=== PATIENT | male | born 1965 | race Caucasian/White ===

== ENCOUNTER → 2017-06-21 | Outpatient (CLI) | payer OTHER | END | disposition home or self-care (01) | LOC: RADUSWWP 12:49 | PROVIDERS: ATTEND Family Medicine | DX: R53.1 Weakness (principal); R20.2 Paresthesia of skin | CPT/HCPCS: 93923 ==

== ENCOUNTER → 2018-05-16 | Outpatient (CLI) | payer OTHER ==
[2018-05-16 18:01] LABS: Blood Urea Nitrogen 15 mg/dL (9-20)
--- NOTE | 2018-05-17 10:07 | CT ---
EXAMINATION TYPE: CT ChestAbdPelvis w con DATE OF EXAM: 05/16/2018 COMPARISON: HISTORY: Head/neck cancer CT DLP: 1617.0 mGycm CONTRAST: CT scan of the chest, abdomen and pelvis is performed with Oral Contrast and with IV Contrast, patien t injected with 100 mL of Isovue 300. CT Chest: LUNGS: The lungs are clear and free of infiltrate or atelectasis. No pulmonary nodule or mass is det ected. No pleural effusion or CT evidence of interstitial lung disease. MEDIASTINUM: Thoracic aorta is of normal caliber. The heart is not enlarged. No evidence for media stinal mass or adenopathy. HILAR STRUCTURES: No evidence for mass. No hilar adenopathy is appreciated. OTHER: No significant abnormality. CONTRAST CT ABDOMEN AND PELVIS FINDINGS: LIVER/GB: No calcified gallstones. No space occupying hepatic lesion. Biliary tree is of normal ca liber. PANCREAS: No inflammation. No distinct mass. SPLEEN: No splenic enlargement. No lesion seen. ADRENALS: No nodule. No thickening. KIDNEYS/BLADDER: No hydronephrosis. No nephrolithiasis. No disctinct renal mass. BOWEL: Normal appendix. Normal bowel caliber. No inflammation. GENITAL ORGANS: No gross abnormality. LYMPH NODES: No greater than 1cm abdominal or pelvic lymph nodes are appreciated. AORTA: No significant abnormality. OSSEOUS STRUCTURES: Mild scattered degenerative changes seen. OTHER: No significant additional abnormality is seen. IMPRESSION: 1. No evidence for metastatic disease.
== END | disposition home or self-care (01) ==
LOC: RADCTMAIN 16:57
PROVIDERS: ATTEND Internal Medicine Hematology & Oncology
DX: C76.0 Malignant neoplasm of head, face and neck (principal)
CPT/HCPCS: 82565; 84520; 71260; 74177; 36415; Q9967

== ENCOUNTER 2019-05-15 12:02 | Inpatient (IN) | payer OTHER ==
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
--- NOTE | 2019-05-15 13:06 | CT ---
EXAMINATION TYPE: CT brain wesly gongora DATE OF EXAM: 05/15/2019 COMPARISON: NONE HISTORY: Neck pain and Stiffness post fall. Contusion injury right superior skull CT DLP: 1308.4 mGycm. Automated Exposure Control for Dose Reduction was Utilized. TECHNIQUE: CT scan of the head and cervical spine are performed without contrast. FINDINGS: There is no acute intracranial hemorrhage or midline shift identified. Mild ventricular a nd sulcal prominence is present. The calvarium is intact. The globes are intact and the visualized s inuses are clear. Cervical spine is visualized in its entirety from C1 through upper thoracic levels and demonstrates l evoconvex scoliotic curvature centered lower cervical spine without evidence of acute fracture or dis location. Prevertebral soft tissue appears within normal limits. The C1-C2 articulation is within n ormal limits on the coronal images. Vertebral body heights are maintained. Mild spurring C4-C5 level . Mild to moderate disc space narrowing and spurring C5-C6 level. Posterior spur disc complexes effac e the anterior thecal sac at the levels of sagittal and axial images. Visualized lung apices are mars r. Somewhat small right-sided thyroid lobe incidentally noted. IMPRESSION: 1. There is no acute fracture or dislocation evident in the cervical spine. 2. No acute intracranial hemorrhage or midline shift is seen.
[2019-05-15] MEDS ORDERED: HYDROcodone/APAP 5-325MG 1 EACH TAB PO STA (13:16)
[2019-05-15] MEDS ORDERED: DIPH,PERTUS(ACELL)TETVAC-LF 0.5 ML VIAL IM ONE (13:16)
--- NOTE | 2019-05-15 14:00 | XR ---
EXAMINATION TYPE: XR shoulder complete RT DATE OF EXAM: 05/15/2019 COMPARISON: NONE HISTORY: 53-year-old male with pain after fall TECHNIQUE: 3 views FINDINGS: There is an oblique, mildly angulated and mildly displaced fracture of the distal right clavicle. Mod erate degenerative change at the AC joint. Additional fracture lucency seen extending from the latera l scapular border just below the glenoid into the scapular body without significant displacement. Deg enerative spurring at the glenohumeral joint. IMPRESSION: 1. Oblique, mildly displaced fracture of the distal right clavicular shaft. 2. Additional nondisplaced fracture of the scapular body exiting the lateral scapular margin just bel ow the glenoid. 3. 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
--- NOTE | 2019-05-15 14:04 | XR ---
EXAMINATION TYPE: XR knee complete 3 views RT, XR ankle complete 3 views RT DATE OF EXAM: 05/15/2019 COMPARISON: NONE HISTORY: 53-year-old male pain after fall today FINDINGS: Right knee: Mild degenerative spurring in the medial and lateral compartments. Some anterior soft tissue swelling is noted. No sizable joint effusion. No lipohemarthrosis. No acute fracture, subluxation, or disloca tion is seen. Right ankle: Soft tissue swelling about the ankle especially laterally. Subtle linear lucency along the inferior t ip of the lateral malleolus. Additional subtle lucency along the inferior tip of the medial malleolus . Ankle mortise remains congruent. Preservation of the distal tibiofibular overlap. Talar dome is int act. Achilles tendon remains delineated. IMPRESSION: 1. Right knee: Some anterior soft tissue swelling. No sizable joint effusion or underlying acute osse ous abnormality seen and 2. Right ankle: Soft tissue swelling with subtle linear lucencies along the inferior tips of both med ial and lateral malleoli. Subtle nondisplaced malleolar fractures not excluded.
--- NOTE | 2019-05-15 14:05 | XR ---
EXAMINATION TYPE: XR ribs RT w pa chest xray DATE OF EXAM: 05/15/2019 CLINICAL HISTORY: Falling injury with chest and right-sided rib pain. TECHNIQUE: Single frontal view of the chest is obtained. A frontal and oblique images the right-sided ribs are acquired. COMPARISON: None FINDINGS: Somewhat low lung volumes are present. There is medial right basilar linear atelectasis. L eft lung is clear. No pleural effusion or pneumothorax. The cardiac silhouette size is within normal limits. The osseous structures are intact. Dedicated images of right-sided ribs show acute minimally displaced fracture involving anterolateral right seventh rib. Overlying soft tissue is unremarkable. IMPRESSION: 1. Patchy medial right basilar linear atelectasis. 2. Acute minimally displaced fracture anterolateral right seventh rib.
[2019-05-15 14:40] LABS: Basophils % (A) 0 %; Eosinophils % (A) 0 %; HCT 39.8 % (39.0-53.0); HGB 13.2 gm/dL (13.0-17.5); Lymphocytes # (A) 1.1 k/uL (1.0-4.8); Lymphocytes % (A) 13 %; MCH 28.2 pg (25.0-35.0); MCHC 33.2 g/dL (31.0-37.0); MCV 84.8 fL (80.0-100.0); Mean Platelet Volume 7.9; Monocytes # (A) 0.7 k/uL (0-1.0); Monocytes % (A) 8 %; Neutrophils # (A) 6.9 k/uL (1.3-7.7); Neutrophils % (A) 77 %; Platelet Count 171 k/uL (150-450); RBC 4.69 m/uL (4.30-5.90); RDW 13.7 % (11.5-15.5)
[2019-05-15 14:48] LABS: ALT 47 U/L (21-72); AST 33 U/L (17-59); African American GFR (CKD) >90 (>60 ml/min/1.73 sqM); Albumin 4.5 g/dL (3.5-5.0); Alkaline Phosphatase 102 U/L (38-126); Anion Gap 14 mmol/L; Blood Urea Nitrogen 26 mg/dL (9-20); Calcium 9.8 mg/dL (8.4-10.2); Carbon Dioxide 23 mmol/L (22-30); Chloride 99 mmol/L (98-107); Glucose 429 mg/dL (74-99); Potassium 4.4 mmol/L (3.5-5.1); Sodium 136 mmol/L (137-145); Total Protein 7.3 g/dL (6.3-8.2)
[2019-05-15] MEDS ORDERED: MORPHINE SULFATE 2 MG/ML SYRINGE IVP STA (15:06)
[2019-05-15 15:13] LABS: Appearance,Urine Clear (Clear); Bilirubin,Urine Negative (Negative); Blood,Urine Negative (Negative); Color,Urine Light Yellow; Glucose,Urine (UA) 4+ (Negative); Ketones,Urine 1+ (Negative); Leukocyte Esterase,Urine Negative (Negative); Nitrite,Urine Negative (Negative); Protein,Urine Negative (Negative); Urobilinogen,Urine <2.0 mg/dL (<2.0)
--- NOTE | 2019-05-15 15:51 | CT ---
EXAMINATION TYPE: CT ChestAbdPelvis w con DATE OF EXAM: 05/15/2019 COMPARISON: 05/16/2018 HISTORY: 53-year-old male with abnormal shoulder and rib xrays TECHNIQUE: Contiguous axial scanning of the chest, abdomen, and pelvis performed with IV Contrast, pa tient injected with 100 mL of Isovue 300. Delayed images through the kidneys were obtained. Coronal/s agittal reconstructions performed. CT DLP: 1383.8 mGycm Automated exposure control for dose reduction was used. FINDINGS: CHEST: Normal size without pericardial effusion. Coronary vessel calcifications are present. Aortic root mildly aneurysmal at 4.0 cm. No evidence for aortic dissection. Conventional vessel branc saran anatomy. No mediastinal hematoma or thoracic lymphadenopathy. Some minimal patchy groundglass in the right mid and lower lung could represent atelectasis or minima l pulmonary contusions. No pleural effusion or pneumothorax. ABDOMEN: Artifact from the patient's right arm being down causes some limitation. No definite focal liver lesi on or biliary ductal dilatation. Portal venous system is patent. Gallbladder, adrenal glands, kidneys, spleen appear within normal limits. Generalized fatty atrophy of the pancreas with some sparing of the pancreatic tail, unchanged from pr ior. There is some nodularity at the level of the pancreatic body measuring 9 mm and 8 mm this appears mor e pronounced from prior and could represent underlying cysts, residual pancreatic parenchyma, or othe r small lesions. Follow-up recommended. No dilated small bowel, free fluid, or free air. No mesenteric or retroperitoneal lymphadenopathy. Moderate stool burden. No pericolonic inflammatory change. PELVIS: Bladder urine distended. Prostate gland mildly prominent 0.8 cm wide. Pelvic phleboliths. Suggestion of some bruising along the right lateral hip. No abnormal fluid collection the pelvis or pelvic lymph adenopathy. BONES: Mild comminuted fracture of the distal right clavicle. Nondisplaced fracture of the right scapular body extending just below the glenoid and coursing just b elow the spine of the scapula. This is better seen radiographically. Mild superior endplate deformity L1 is chronic and unchanged from 05/16/2018. Subtle nondisplaced fractures of the right lateral fourth and sixth ribs. Degenerative changes at the hips. Facet arthropathy lumbar spine. IMPRESSION: 1. MILDLY COMMINUTED FRACTURE DISTAL RIGHT CLAVICLE. 2. NONDISPLACED HORIZONTAL FRACTURE OF THE SCAPULAR BODY EXTENDING FROM BELOW THE GLENOID AND COURSIN G JUST BELOW THE SCAPULAR SPINE AND ALIGNMENT IS BETTER SEEN RADIOGRAPHICALLY. 3. NONDISPLACED FRACTURES OF THE RIGHT LATERAL FOURTH AND SIXTH RIBS. 4. SOME MILD PATCHY DENSITIES IN THE RIGHT LUNG COULD REPRESENT AREAS OF ATELECTASIS OR MINIMAL PULMO NARY CONTUSIONS. NO PLEURAL EFFUSION OR PNEUMOTHORAX. 5. SOME SUBCUTANEOUS SOFT TISSUE BRUISING ALONG THE RIGHT LATERAL HIP. 6. SOME NODULARITY MEASURING 9 MM AND 8 MM WITHIN THE PANCREATIC BODY APPEARS MORE PRONOUNCED FROM . [address] FOLLOW-UP CT RECOMMENDED TO REASSESS.
[2019-05-15] MEDS ORDERED: ONDANSETRON 4 MG/2 ML VIAL IVP PRN (16:28)
[2019-05-15] MEDS ORDERED: SODIUM CHLORIDE 0.9% 1,000 ML IV SCH (16:30)
[2019-05-15] MEDS ORDERED: HEPARIN SODIUM,PORCINE 5,000 UNIT/ML 1 ML VIAL IV ONE (17:03)
[2019-05-15] MEDS ORDERED: HEPARIN SOD,PORK IN 0.45% NACL 25,000 UNIT in 0.45% NACL 1 250ML.BAG IV SCH (17:15)
[2019-05-15 21:06] LABS: Glucose,Whole Blood 291 mg/dL (75-99)
[2019-05-16] MEDS ORDERED: HEPARIN SODIUM,PORCINE 5,000 UNIT/ML 1 ML VIAL IV PRN (01:11)
[2019-05-16] MEDS: MORPHINE SULFATE 4 MG/ML SYRINGE IV PRN ×2 (02:40→07:16)
[2019-05-16 07:11] LABS: Glucose,Whole Blood 287 mg/dL (75-99)
[2019-05-16] MEDS ORDERED: HYDROcodone/APAP 5-325MG 1 EACH TAB PO PRN (08:09)
[2019-05-16] MEDS: ATORVASTATIN 80 MG TAB PO SCH (08:45)
[2019-05-16] MEDS: ENOXAPARIN 40 MG/0.4 ML SYRINGE SQ SCH (08:45)
[2019-05-16] MEDS: INSULIN ASPART (NovoLOG) 100 UNIT/ML VIAL SQ SCH ×4 (08:45→21:07)
[2019-05-16] MEDS: metFORMIN 500 MG TAB PO SCH ×2 (08:46→17:42)
[2019-05-16] MEDS: SODIUM CHLORIDE 0.9% 1,000 ML IV SCH ×2 (08:46→17:43)
[2019-05-16 11:17] LABS: Glucose,Whole Blood 294 mg/dL (75-99)
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
[2019-05-16] MEDS ORDERED: IBUPROFEN 600 MG TAB PO PRN (13:27)
[2019-05-16] MEDS ORDERED: CYCLOBENZAPRINE 5 MG TAB PO PRN (13:27)
[2019-05-16] MEDS: HYDROcodone/APAP 7.5-325MG 1 EACH TAB PO PRN (16:08)
[2019-05-16 16:46] LABS: Glucose,Whole Blood 273 mg/dL (75-99)
[2019-05-16 19:45] LABS: Glucose,Whole Blood 229 mg/dL (75-99)
[2019-05-16 20:57] LABS: Hemoglobin A1C 14.6 % (4.0-6.0)
[2019-05-17] MEDS: HYDROcodone/APAP 7.5-325MG 1 EACH TAB PO PRN ×3 (02:15→12:44)
[2019-05-17] MEDS: SODIUM CHLORIDE 0.9% 1,000 ML IV SCH ×2 (05:40→16:06)
[2019-05-17 06:55] LABS: Glucose,Whole Blood 245 mg/dL (75-99)
[2019-05-17] MEDS: INSULIN ASPART (NovoLOG) 100 UNIT/ML VIAL SQ SCH ×2 (07:45→12:40)
[2019-05-17] MEDS: ENOXAPARIN 40 MG/0.4 ML SYRINGE SQ SCH (07:45)
[2019-05-17] MEDS: metFORMIN 500 MG TAB PO SCH (07:45)
[2019-05-17] MEDS: ATORVASTATIN 80 MG TAB PO SCH (07:45)
[2019-05-17 08:15] LABS: Basophils % (A) 0 %; Eosinophils # (A) 0.1 k/uL (0-0.7); Eosinophils % (A) 2 %; HCT 32.9 % (39.0-53.0); HGB 11.2 gm/dL (13.0-17.5); Lymphocytes # (A) 1.3 k/uL (1.0-4.8); Lymphocytes % (A) 17 %; MCHC 33.9 g/dL (31.0-37.0); MCV 85.4 fL (80.0-100.0); Mean Platelet Volume 7.4; Monocytes # (A) 0.6 k/uL (0-1.0); Monocytes % (A) 8 %; Neutrophils # (A) 5.5 k/uL (1.3-7.7); Neutrophils % (A) 71 %; Platelet Count 149 k/uL (150-450); RBC 3.85 m/uL (4.30-5.90); RDW 13.7 % (11.5-15.5); WBC 7.7 k/uL (3.8-10.6)
[2019-05-17 08:26] LABS: African American GFR (CKD) >90 (>60 ml/min/1.73 sqM); Anion Gap 8 mmol/L; Blood Urea Nitrogen 20 mg/dL (9-20); Calcium 8.5 mg/dL (8.4-10.2); Carbon Dioxide 25 mmol/L (22-30); Chloride 102 mmol/L (98-107); Glucose 230 mg/dL (74-99); Sodium 135 mmol/L (137-145)
[2019-05-17] MEDS ORDERED: PANTOPRAZOLE 40 MG/10 ML VIAL IVP SCH (09:00)
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
[2019-05-17 11:27] VITALS: BMI 26.0
[2019-05-17 11:33] LABS: Glucose,Whole Blood 261 mg/dL (75-99)
[2019-05-17 12:04] VITALS: BP 104/65; PULSE 80; RESP 17; TEMP 97.1
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
== END 2019-05-17 17:05 | disposition home or self-care (01) | DRG 565 ==
LOC: EC 12:02 → 3NMEDONC 17:02 → OBSVTOIN 05-16 07:28
PROVIDERS: ADMIT Surgery; ATTEND Surgery
PROC: 3E0234Z Introduction of Serum, Toxoid and Vaccine into Muscle, Percutaneous Approach (ICD-10-PCS; principal; 2019-05-15)
DX: S42.114A Nondisplaced fracture of body of scapula, right shoulder, initial encounter for closed fracture (principal); S27.321A Contusion of lung, unilateral, initial encounter; S22.41XA Multiple fractures of ribs, right side, initial encounter for closed fracture; J98.11 Atelectasis; S42.021A Displaced fracture of shaft of right clavicle, initial encounter for closed fracture; E11.40 Type 2 diabetes mellitus with diabetic neuropathy, unspecified; E11.65 Type 2 diabetes mellitus with hyperglycemia; Z23 Encounter for immunization; S82.844A Nondisplaced bimalleolar fracture of right lower leg, initial encounter for closed fracture; S70.01XA Contusion of right hip, initial encounter; S80.01XA Contusion of right knee, initial encounter; S00.01XA Abrasion of scalp, initial encounter; S40.811A Abrasion of right upper arm, initial encounter; E78.5 Hyperlipidemia, unspecified; Z79.84 Long term (current) use of oral hypoglycemic drugs; Z79.899 Other long term (current) drug therapy; Z98.890 Other specified postprocedural states; Z87.891 Personal history of nicotine dependence; Z85.818 Personal history of malignant neoplasm of other sites of lip, oral cavity, and pharynx; Z83.3 Family history of diabetes mellitus; Z82.49 Family history of ischemic heart disease and other diseases of the circulatory system; V28.4XXA Motorcycle driver injured in noncollision transport accident in traffic accident, initial encounter; Y92.410 Unspecified street and highway as the place of occurrence of the external cause
CPT/HCPCS: 29515; 36415; 70450; 71045; 71260; 72125; 74177; 80048; 80053; 81003; 82009; 83036; 85025; 85730; 90471; 90715; 96365; 96375; 96376; 99285

== ENCOUNTER → 2022-06-10 | Outpatient (CLI) | payer OTHER ==
--- NOTE | 2022-06-10 12:01 | US ---
EXAMINATION TYPE: US carotid duplex BILAT DATE OF EXAM: 06/10/2022 COMPARISON: NONE CLINICAL HISTORY: R42 Dizziness Giddiness. Patient states he has been falling over lately. No HTN per patient. TECHNIQUE: Carotid duplex ultrasound examination. Indirect Doppler criteria was utilized. FINDINGS: EXAM MEASUREMENTS: RIGHT: Peak Systolic Velocity (PSV) cm/sec ----- Right CCA: 56.4 ----- Right ICA: 123.7 ----- Right ECA: 158.9 ICA/CCA ratio: 2.2 RIGHT: End Diastole cm/sec ----- Right CCA: 16.2 ----- Right ICA: 36.5 ----- Right ECA: 13.0 LEFT: Peak Systolic Velocity (PSV) cm/sec ----- Left CCA: 111.9 ----- Left ICA: 115.7 ----- Left ECA: 130.2 ICA/CCA ratio: 1.0 LEFT: End Diastole cm/sec ----- Left CCA: 35.2 ----- Left ICA: 52.7 ----- Left ECA: 10.7 VERTEBRALS (direction of flow): Right Vertebral: Antegrade Left Vertebral: Antegrade Rhythm: Normal MULTIFOCAL LENS INSPECTOR NOTES: Bilateral wall thickening. Plaque bilateral bulbs. Elevated ECA velocities. Grayscale images show moderate to severe peripheral plaque right carotid bulb and severe hypoechoic p laque left carotid bulb. Increased peak systolic velocity left common carotid artery. Increased end d iastolic velocity left internal carotid artery. Abnormal ratio on the right. IMPRESSION: Fairly severe atherosclerotic changes bilaterally. Cannot exclude significant stenosis gr eater than 50%. Further investigation with CTA or MRA of the neck is advised. Criteria for Assigning % of Stenosis / Diameter reduction (Estimation based on the indirect measurements of the internal carotid artery velocities (ICA PSV). 1. Normal (no stenosis)=ICA PSV < 125 cm/s: ratio < 2.0: ICA EDV<40 cm/s. 2. Less than 50% stenosis=ICA PSV < 125 cm/s: ratio < 2.0: ICA EDV<40 cm/s. 3. 50 to 69% stenosis=ICA PSV of 125 to 230 cm/s: ration 2.0 ? 4.0: ICA EDV 40-100 cm/s. 4. Greater than 70% stenosis to near occlusion= ICA PSV > 230 cm/s: ratio > 4.0: ICA EDV > 100 cm/s. 5. Near occlusion= ICA PSV velocities may be low or undetectable: variable ratio and ICA EDV. 6. Total occlusion=unable to detect flow.
== END | disposition home or self-care (01) ==
LOC: RADUSWWP 11:21
DX: I65.23 Occlusion and stenosis of bilateral carotid arteries (principal)
CPT/HCPCS: 93880

== ENCOUNTER → 2022-10-22 | Outpatient (CLI) | payer OTHER ==
[2022-10-22 10:53] LABS: African American GFR (CKD) >90 (>60 ml/min/1.73 sqM); Blood Urea Nitrogen 21 mg/dL (9-20); Non-African American GFR(CKD) >90 (>60 ml/min/1.73 sqM)
--- NOTE | 2022-10-22 12:14 | CT ---
EXAMINATION TYPE: CT brain wo/w con DATE OF EXAM: 10/22/2022 COMPARISON: CT brain May 15, 2019 HISTORY: Dizziness and giddiness. CT DLP: 2266.60 mGycm Automated exposure control for dose reduction was used. CONTRAST: CT scan of the head is performed without and with IV Contrast, patient injected with 70 mL of Isovue 300. FINDINGS: There is mild to moderate ventricular and sulcal prominence redemonstrated. Mild low attenuation in t he deep white matter is again seen. Postcontrast images show no suspicious enhancing intraparenchymal mass. The globes are intact and the visualized paranasal sinuses are clear. No suspicious opacificat ion of the mastoid air cells is seen. Patchy cerumen is present bilaterally. IMPRESSION: Mild to moderate diffuse cerebral atrophy and mild chronic small vessel ischemic change r edemonstrated. No abnormal enhancing masses. No significant change from prior CT.
== END | disposition home or self-care (01) ==
LOC: RADCTMAIN 09:51
DX: I67.82 Cerebral ischemia (principal); G31.9 Degenerative disease of nervous system, unspecified; R42 Dizziness and giddiness
CPT/HCPCS: 82565; 84520; 70470; 36415; Q9967

== ENCOUNTER 2023-02-09 15:50 | Inpatient (IN) | payer OTHER ==
--- NOTE | 2023-02-09 16:37 | ED ---
General Adult HPI - General Source: patient, family Mode of arrival: wheelchair <Gladys Gonzalez - Last Filed: 02/09/23 16:36> <Chase Jimenez - Last Filed: 02/10/23 01:08> - General Stated complaint: vomiting Time Seen by Provider: 02/09/23 16:36 - History of Present Illness Initial comments: Patient is a 57-year-old male with history of diabetes and squamous cell carcinoma presenting with chief complaint of vomiting that started today. No chest pain or difficulty breathing. 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 While waiting in the emergency department, the patient did have a syncopal episode while trying oh to the bathroom. The patient was caught and did not suffer any trauma. The patient did state that he hasn't past medical history including low blood pressure and is on Midrin. On arrival, the patient denied any other acute pain or complaints at this time. The patient was nauseous. The patient also stated that he has not been any drinking appropriately of the last several days. The patient denied any fevers and chills. (Chase Jimenez) - Related Data Home Medications Medication Instructions Recorded Confirmed Atorvastatin [Lipitor] 80 mg PO DAILY 05/15/19 05/15/19 metFORMIN HCL [Glucophage] 500 mg PO BID 05/15/19 05/15/19 Previous Rx's Medication Instructions Recorded HYDROcodone/APAP 7.5-325MG [Burns 1 tab PO Q4H PRN 3 Days #18 tab 05/17/19 7.5-325] Allergies Allergy/AdvReac Type Severity Reaction Status Date / Time No Known Allergies Allergy Verified 02/09/23 18:05 Review of Systems ROS Other: All systems not noted in ROS Statement are negative. <Gladys Gonzalez - Last Filed: 02/09/23 16:36> ROS Other: All systems not noted in ROS Statement are negative. <Chase Jimenez - Last Filed: 02/10/23 01:08> ROS Statement: Those systems with pertinent positive or pertinent negative responses have been documented in the HPI. Past Medical History Past Medical History: Diabetes Mellitus Additional Past Medical History / Comment(s): Squamous cell carcinoma History of Any Multi-Drug Resistant Organisms: None Reported Additional Past Surgical History / Comment(s): Surgical excision of squamous cell carcinoma with lymphnodectomy and removal of salivary glands 07/26/16. Past Psychological History: No Psychological Hx Reported Past Alcohol Use History: None Reported Past Drug Use History: None Reported - Past Family History Father Family Medical History: Diabetes Mellitus Additional Family Medical History / Comment(s): patient states father had "cardiac issues" <Gladys Gonzalez - Last Filed: 02/09/23 16:36> General Exam <Gladys Gonzalez - Last Filed: 02/09/23 16:36> Limitations: no limitations General appearance: alert, in no apparent distress, cachectic Head exam: Present: atraumatic, normocephalic, normal inspection Eye exam: Present: normal appearance, PERRL Pupils: Present: normal accommodation ENT exam: Present: normal exam, normal oropharynx, mucous membranes moist Neck exam: Present: normal inspection, full ROM Respiratory exam: Present: normal lung sounds bilaterally Cardiovascular Exam: Present: regular rate, normal rhythm, normal heart sounds GI/Abdominal exam: Present: soft, normal bowel sounds Extremities exam: Present: normal inspection, full ROM Back exam: Present: normal inspection, full ROM Neurological exam: Present: alert, oriented X3, CN II-XII intact Psychiatric exam: Present: normal affect, normal mood Skin exam: Present: warm, dry <Chase Jimenez - Last Filed: 02/10/23 01:08> - General Exam Comments Initial Comments: Visual Physical Exam Vital signs reviewed General: Well-appearing, nontoxic, no acute distress. Head: Normocephalic, atraumatic Eyes: PERRLA, EOMI ENT: Airway patent Chest: Nonlabored breathing Skin: No visual rash, normal skin tone Neuro: Alert and oriented 3 Musculoskeletal: No gross abnormalities (Gladys Gonzlaez) Course Vital Signs 02/09/23 02/09/23 02/09/23 18:01 20:50 22:36 Temperature 97.2 F L Pulse Rate 90 78 98 Respiratory 18 20 18 Rate Blood Pressure 97/63 71/46 112/53 O2 Sat by Pulse 94 L 98 98 Oximetry EKG Findings - EKG Comments: EKG Findings:: An EKG was obtained and was interpreted by myself showing a rate of 99, WA interval 144, QRS duration 94 and QTC of 397. This EKG showed a normal sinus rhythm with no ST segment elevation or depression noted. <Chase Jimenez - Last Filed: 02/10/23 01:08> Medical Decision Making - Lab Data Result diagrams: 02/09/23 18:41 02/09/23 18:41 <BarbaraBabakChase - Last Filed: 02/10/23 01:08> - Medical Decision Making Was pt. sent in by a medical professional or institution (, PA, HAULING CONTRACTOR, urgent care, hospital, or penitentiary...) When possible be specific @ -No Did you speak to anyone other than the patient for history (EMS, parent, family, police, friend...)? What history was obtained from this source @ -Yes, Patient's brother who is at the bedside and stated that he did indeed have a syncopal episode while and to the emergency department but was caught wit hout any trauma experienced. Did you review nursing and triage notes (agree or disagree)? Why? @ -I reviewed and agree with nursing and triage notes Were old charts reviewed (outside hosp., previous admission, EMS record, old EKG, old radiological studies, urgent care reports/EKG's, penitentiary records)? Report findings @ -No old charts were reviewed Differential Diagnosis (chest pain, altered mental status, abdominal pain women, abdominal pain men, vaginal bleeding, weakness, fever, dyspnea, syncope, headache, dizziness, GI bleed, back pain, seizure, CVA, palpatations, mental health)? @ -Dehydration, pneumonia, sepsis EKG interpreted by me (3pts min.). @ -As above X-rays interpreted by me (1pt min.). @ -Chest x-ray was obtained and was interpreted by myself showing no acute process. CT interpreted by me (1pt min.). @ -CTA of the chest and CT abdomen and pelvis with IV contrast was obtained and was interpreted by myself. CT abdomen and pelvis showed no bowel obstruction. There was possible mild uncomplicated colitis but favor products of port disten tion. There was possible concerns for mesenteric panniculitis. CTA of the chest showed no evidence of PE. There was also bilateral lower lung ground glass opacities consistent with edema and/or infiltrates with organization consolidation also seen in the lingula and to a greater degree in the right middle lobe. I lateral [id number] pneumonia is considered. U/S interpreted by me (1pt. min.). @ -None done What testing was considered but not performed or refused? (CT, X-rays, U/S, labs)? Why? @ -None What meds were considered but not given or refused? Why? @ -None Did you discuss the management of the patient with other professionals (professionals i.e. , PA, HAULING CONTRACTOR, lab, RT, psych nurse, social sciences department chair, wardrobe supervisor, teacher, contract officer, case coordinator)? Give summary @ -Yes, Admitting physician was contacted regarding admission. Was smoking cessation discussed for >3mins.? @ -No Was critical care preformed (if so, how long)? @ -No Were there social determinants of health that impacted care today? How? (Homelessness, low income, unemployed, alcoholism, drug addiction, transportation, low edu. Level, literacy, decrease access to med. care, shelter, rehab)? @ -No Was there de-escalation of care discussed even if they declined (Discuss DNR or withdrawal of care, Hospice)? DNR status @ -No What co-morbidities impacted this encounter? (DM, HTN, Smoking, COPD, CAD, Cancer, CVA, ARF, Chemo, Hep., AIDS, mental health diagnosis, sleep apnea, morbid obesity)? @ -Diabetes, squamous cell carcinoma of the face Was patient admitted / discharged? Hospital course, mention meds given and route, prescriptions, significant lab abnormalities, going to OR and other pertinent info. @ -The patient was seen and evaluated emergency department. On physical exam, the patient was resting in bed without any acute distress. The patient did however wait for approximately 5 and half hours in the waiting room and did have a syncopal episode on arrival. The patient's blood pressure did remain stable and when I evaluated the patient, he only had mild nausea. The patient did state that he did not take his Midrin as prescribed today. The patient denied any acute pain or complaints however noted that he was lethargic and has been weak. Due to this, full workup was obtained. Laboratory workup was consistent with an elevated d-dimer as well as an elevated lactic acid. Repeat lactic acid was indeed increasing despite fluid hydration. Due to the findings on CT of the chest and concerns for multilobar pneumonia in the setting of increasing lactic acid and dehydration, the patient will be treated for possible sepsis. The patient did receive 30 mL per KG of fluids during his workup in the emergency department and blood cultures were obtained and have asked were given. There was a delay in this secondary to obtain a computed tomography scan. The patient continued to remain stable on reevaluation and did agree with this plan. The patient was admitted in stable condition. Undiagnosed new problem with uncertain prognosis? @ -No Drug Therapy requiring intensive monitoring for toxicity (Heparin, Nitro, Insulin, Cardizem)? @ -No Were any procedures done? @ -No Diagnosis/symptom? @ -Multilobar pneumonia, sepsis Acute, or Chronic, or Acute on Chronic? @ -Acute Uncomplicated (without systemic symptoms) or Complicated (systemic symptoms)? @ -Complicated Side effects of treatment? @ -No Exacerbation, Progression, or Severe Exacerbation? @ -No Poses a threat to life or bodily function? How? (Chest pain, [place], [place], pneumonia, PE, COPD, DKA, ARF, appy, cholecystitis, CVA, Diverticulitis, Homicidal, Suicidal, threat to staff... and all critical care pts) @ -Yes, continued sepsis can lead to end organ damage and possible . (Chase Jimenez) - Lab Data Lab Results 02/09/23 02/09/23 02/09/23 Range/Units 18:41 18:41 18:41 WBC 11.8 H (3.8-10.6) k/uL RBC 4.75 (4.30-5.90) m/uL Hgb 13.2 (13.0-17.5) gm/dL Hct 40.2 (39.0-53.0) % MCV 84.5 (80.0-100.0) fL MCH 27.9 (25.0-35.0) pg MCHC 33.0 (31.0-37.0) g/dL RDW 13.6 (11.5-15.5) % Plt Count 277 (150-450) k/uL MPV 7.9 Neutrophils % (Manual) 64 % Band Neuts % (Manual) 8 % Lymphocytes % (Manual) 19 % Monocytes % (Manual) 7 % Eosinophils % (Manual) 2 % Neutrophils # (Manual) 8.40 H (1.3-7.7) k/uL Lymphocytes # (Manual) 2.24 (1.0-4.8) k/uL Monocytes # (Manual) 0.83 (0-1.0) k/uL Eosinophils # (Manual) 0.24 (0-0.7) k/uL Nucleated RBCs 0 (0-0) /100 WBC Manual Slide Review Performed Toxic Granulation Present Toxic Vacuolation Present D-Dimer (<0.60) mg/L FEU Sodium 138 (137-145) mmol/L Potassium 4.4 (3.5-5.1) mmol/L Chloride 99 (98-107) mmol/L Carbon Dioxide 26 (22-30) mmol/L Anion Gap 13 mmol/L BUN 24 H (9-20) mg/dL Creatinine 1.46 H (0.66-1.25) mg/dL Est GFR (CKD-EPI)AfAm 60 (>60 ml/min/1.73 sqM) Est GFR (CKD-EPI)NonAf 52 (>60 ml/min/1.73 sqM) Glucose 296 H (74-99) mg/dL Lactic Ac Sepsis Rflx Plasma Lactic Acid Gerard 3.4 H* (0.7-2.0) mmol/L Calcium 9.9 (8.4-10.2) mg/dL Magnesium (1.6-2.3) mg/dL Total Bilirubin 0.4 (0.2-1.3) mg/dL AST 20 (17-59) U/L ALT 18 (4-49) U/L Alkaline Phosphatase 87 (38-126) U/L Troponin I (0.000-0.034) ng/mL NT-Pro-B Natriuret Pep pg/mL Total Protein 6.9 (6.3-8.2) g/dL Albumin 4.2 (3.5-5.0) g/dL Amylase 40 (30-110) U/L Lipase 35 (23-300) U/L 02/09/23 02/09/23 02/09/23 Range/Units 19:37 21:12 21:12 WBC (3.8-10.6) k/uL RBC (4.30-5.90) m/uL Hgb (13.0-17.5) gm/dL Hct (39.0-53.0) % MCV (80.0-100.0) fL MCH (25.0-35.0) pg MCHC (31.0-37.0) g/dL RDW (11.5-15.5) % Plt Count (150-450) k/uL MPV Neutrophils % (Manual) % Band Neuts % (Manual) % Lymphocytes % (Manual) % Monocytes % (Manual) % Eosinophils % (Manual) % Neutrophils # (Manual) (1.3-7.7) k/uL Lymphocytes # (Manual) (1.0-4.8) k/uL Monocytes # (Manual) (0-1.0) k/uL Eosinophils # (Manual) (0-0.7) k/uL Nucleated RBCs (0-0) /100 WBC Manual Slide Review Toxic Granulation Toxic Vacuolation D-Dimer (<0.60) mg/L FEU Sodium (137-145) mmol/L Potassium (3.5-5.1) mmol/L Chloride (98-107) mmol/L Carbon Dioxide (22-30) mmol/L Anion Gap mmol/L BUN (9-20) mg/dL Creatinine (0.66-1.25) mg/dL Est GFR (CKD-EPI)AfAm (>60 ml/min/1.73 sqM) Est GFR (CKD-EPI)NonAf (>60 ml/min/1.73 sqM) Glucose (74-99) mg/dL Lactic Ac Sepsis Rflx Y Plasma Lactic Acid Gerard (0.7-2.0) mmol/L Calcium (8.4-10.2) mg/dL Magnesium 1.7 (1.6-2.3) mg/dL Total Bilirubin (0.2-1.3) mg/dL AST (17-59) U/L ALT (4-49) U/L Alkaline Phosphatase (38-126) U/L Troponin I <0.012 (0.000-0.034) ng/mL NT-Pro-B Natriuret Pep pg/mL Total Protein (6.3-8.2) g/dL Albumin (3.5-5.0) g/dL Amylase (30-110) U/L Lipase (23-300) U/L 02/09/23 02/09/23 02/09/23 Range/Units 21:12 21:55 21:59 WBC (3.8-10.6) k/uL RBC (4.30-5.90) m/uL Hgb (13.0-17.5) gm/dL Hct (39.0-53.0) % MCV (80.0-100.0) fL MCH (25.0-35.0) pg MCHC (31.0-37.0) g/dL RDW (11.5-15.5) % Plt Count (150-450) k/uL MPV Neutrophils % (Manual) % Band Neuts % (Manual) % Lymphocytes % (Manual) % Monocytes % (Manual) % Eosinophils % (Manual) % Neutrophils # (Manual) (1.3-7.7) k/uL Lymphocytes # (Manual) (1.0-4.8) k/uL Monocytes # (Manual) (0-1.0) k/uL Eosinophils # (Manual) (0-0.7) k/uL Nucleated RBCs (0-0) /100 WBC Manual Slide Review Toxic Granulation Toxic Vacuolation D-Dimer 1.44 H (<0.60) mg/L FEU Sodium (137-145) mmol/L Potassium (3.5-5.1) mmol/L Chloride (98-107) mmol/L Carbon Dioxide (22-30) mmol/L Anion Gap mmol/L BUN (9-20) mg/dL Creatinine (0.66-1.25) mg/dL Est GFR (CKD-EPI)AfAm (>60 ml/min/1.73 sqM) Est GFR (CKD-EPI)NonAf (>60 ml/min/1.73 sqM) Glucose (74-99) mg/dL Lactic Ac Sepsis Rflx Plasma Lactic Acid Gerard 5.9 H* (0.7-2.0) mmol/L Calcium (8.4-10.2) mg/dL Magnesium (1.6-2.3) mg/dL Total Bilirubin (0.2-1.3) mg/dL AST (17-59) U/L ALT (4-49) U/L Alkaline Phosphatase (38-126) U/L Troponin I (0.000-0.034) ng/mL NT-Pro-B Natriuret Pep 192 pg/mL Total Protein (6.3-8.2) g/dL Albumin (3.5-5.0) g/dL Amylase (30-110) U/L Lipase (23-300) U/L 02/09/23 Range/Units 22:31 WBC (3.8-10.6) k/uL RBC (4.30-5.90) m/uL Hgb (13.0-17.5) gm/dL Hct (39.0-53.0) % MCV (80.0-100.0) fL MCH (25.0-35.0) pg MCHC (31.0-37.0) g/dL RDW (11.5-15.5) % Plt Count (150-450) k/uL MPV Neutrophils % (Manual) % Band Neuts % (Manual) % Lymphocytes % (Manual) % Monocytes % (Manual) % Eosinophils % (Manual) % Neutrophils # (Manual) (1.3-7.7) k/uL Lymphocytes # (Manual) (1.0-4.8) k/uL Monocytes # (Manual) (0-1.0) k/uL Eosinophils # (Manual) (0-0.7) k/uL Nucleated RBCs (0-0) /100 WBC Manual Slide Review Toxic Granulation Toxic Vacuolation D-Dimer (<0.60) mg/L FEU Sodium (137-145) mmol/L Potassium (3.5-5.1) mmol/L Chloride (98-107) mmol/L Carbon Dioxide (22-30) mmol/L Anion Gap mmol/L BUN (9-20) mg/dL Creatinine (0.66-1.25) mg/dL Est GFR (CKD-EPI)AfAm (>60 ml/min/1.73 sqM) Est GFR (CKD-EPI)NonAf (>60 ml/min/1.73 sqM) Glucose (74-99) mg/dL Lactic Ac Sepsis Rflx Y Plasma Lactic Acid Gerard (0.7-2.0) mmol/L Calcium (8.4-10.2) mg/dL Magnesium (1.6-2.3) mg/dL Total Bilirubin (0.2-1.3) mg/dL AST (17-59) U/L ALT (4-49) U/L Alkaline Phosphatase (38-126) U/L Troponin I (0.000-0.034) ng/mL NT-Pro-B Natriuret Pep pg/mL Total Protein (6.3-8.2) g/dL Albumin (3.5-5.0) g/dL Amylase (30-110) U/L Lipase (23-300) U/L Disposition <Gladys Gonzalez - Last Filed: 02/09/23 16:36> Is patient prescribed a controlled substance at d/c from ED?: No Time of Disposition: 00:05 Decision to Admit Reason: Admit from EC Decision Date: 02/10/23 Decision Time: 00:05 <Chase Jimenez - Last Filed: 02/10/23 01:08> Clinical Impression: Multilobar lung infiltrate, Sepsis Disposition: ADMITTED IP TO THIS HOSP Condition: Stable Referrals: [facility],Clinic [Primary Care Provider] - 1-2 days
[2023-02-09 19:12] LABS: HCT 40.2 % (39.0-53.0); HGB 13.2 gm/dL (13.0-17.5); MCH 27.9 pg (25.0-35.0); MCV 84.5 fL (80.0-100.0); Mean Platelet Volume 7.9; Platelet Count 277 k/uL (150-450); RBC 4.75 m/uL (4.30-5.90); RDW 13.6 % (11.5-15.5); WBC 11.8 k/uL (3.8-10.6)
[2023-02-09 19:26] LABS: Albumin 4.2 g/dL (3.5-5.0); Calcium 9.9 mg/dL (8.4-10.2); Potassium 4.4 mmol/L (3.5-5.1); Total Bilirubin 0.4 mg/dL (0.2-1.3); Total Protein 6.9 g/dL (6.3-8.2)
[2023-02-09 19:43] LABS: Band Neutrophils % 8 %; Eosinophils # (M) 0.24 k/uL (0-0.7); Lymphocytes # (M) 2.24 k/uL (1.0-4.8); Monocytes # (M) 0.83 k/uL (0-1.0); Neutrophils % (M) 64 %; Nucleated Red Blood Cells 0 /100 WBC (0-0); Total Cells Counted 100
[2023-02-09 19:47] LABS: Toxic Granulation Present; Toxic Vacuolation Present
--- NOTE | 2023-02-09 21:32 | XR ---
EXAMINATION TYPE: XR chest 2V DATE OF EXAM: 02/09/2023 COMPARISON: Chest x-ray May 17, 2019 HISTORY: Chest pain. TECHNIQUE: Frontal and lateral views of the chest are obtained. FINDINGS: Improved inspiration. There is no suspicious focal air space opacity, pleural effusion, or pneumothorax seen. The cardiac silhouette size is less prominent and remain within normal limits. M ultilevel spurring in the thoracic spine is present. Scoliotic curvature is seen. IMPRESSION: No acute cardiopulmonary process.
[2023-02-09] MEDS ORDERED: SODIUM CHLORIDE 0.9% 1,000 ML IV ONE ×2 (21:54→22:37)
--- NOTE | 2023-02-09 23:20 | CT ---
EXAMINATION TYPE: CT angio chest DATE OF EXAM: 02/09/2023 COMPARISON: Prior CT May 15, 2019 HISTORY: CHEST PAIN and shortness of breath CT DLP: 708.6 mGycm. Automated Exposure Control for Dose Reduction was Utilized. CONTRAST: CTA scan of the thorax is performed with IV Contrast, patient injected with 80 mL of Isovue 370, pulm onary embolism protocol. MIP Images are created on CT scanner and reviewed. FINDINGS: LUNGS: Areas of groundglass opacity in the bilateral lower lungs with organizing consolidation seen m edial aspect of the lingula and to a greater degree involving the right middle lobe. There is no pl eural effusion or pneumothorax seen. The tracheobronchial tree is patent. MEDIASTINUM: There is satisfactory enhancement of the pulmonary artery and its branches, there is no CT evidence for pulmonary embolism. Successful enhancement of the aorta without aneurysm or dissectio n. There are some prominent bilateral hilar lymph nodes. No greater than 1 cm mediastinal lymph node s No cardiomegaly or pericardial effusion is seen. There is three-vessel coronary artery calcificat ion. OTHER: Please refer to same day CT abdomen and pelvis report for complete details on the upper abdome n. IMPRESSION: 1. No CT evidence for acute pulmonary embolism. 2. Bilateral lower lung groundglass opacities consistent with edema and/or infiltrates with organizin g consolidation also seen in the lingula and to greater degree in the right middle lobe. Bilateral mu ltilobar pneumonia needs to be considered.
--- NOTE | 2023-02-09 23:24 | CT ---
EXAMINATION TYPE: CT abdomen pelvis w con DATE OF EXAM: 02/09/2023 COMPARISON: Prior CT May 15, 2019 HISTORY: ABD PAIN. Nausea and vomiting. Increased lactic acid. CT DLP: 1170 mGycm, Automated Exposure Control for Dose Reduction was Utilized. CONTRAST: CT scan of the abdomen and pelvis is performed with oral and with IV Contrast, patient injected with 80 mL of Isovue 370. FINDINGS: LUNG BASES: Please refer to same day CTA chest report for complete details on the lung bases. LIVER/GB: No significant abnormality is appreciated. PANCREAS: [id number] fat replaced atrophy redemonstrated. SPLEEN: No significant abnormality is seen. ADRENALS: No significant abnormality is seen. KIDNEYS: No significant abnormality is seen. BOWEL: Gas prominent rectum. Suboptimal evaluation without enteric contrast. No suspicious small or l arge bowel dilatation. Mild to moderate wall thickening in the right colon extends into the transvers e colon and portions of the left colon. No significant fluid or fat stranding. Normal-appearing appen loki. No free air. Redundant sigmoid colon is seen. PROSTATE/SEMINAL VESICLES: Prostate gland upper limits of normal in size not significantly changed fr om prior. Scattered bilateral pelvic phleboliths are seen. LYMPH NODES: No greater than 1cm abdominal or pelvic lymph nodes are appreciated. A few prominent bu t subcentimeter lymph nodes in the upper to mid abdomen extending left of midline with mild haziness in the mesentery axial image 33 OSSEOUS STRUCTURES: Multilevel facet arthropathy in the lower lumbar spine. OTHER: Tiny fat-containing umbilical hernia size image 77 redemonstrated. Mild to moderate peripheral calcified plaque in the aorta extends into branch vessels. IMPRESSION: No bowel obstruction. Possible mild uncomplicated colitis but favor product of poor diste ntion. Mild Ariane mesentery raises concern for mesenteric panniculitis. Correlate clinically.
[2023-02-10] MEDS ORDERED: SODIUM CHLORIDE 0.9% 500 ML 500 ML IV STA (01:00)
[2023-02-10] MEDS: LEVOFLOXACIN 750MG-D5W PMX 750 MG in DEXTROSE/WATER 1 150ML.BAG IVPB SCH (02:25)
--- NOTE | 2023-02-10 04:30 | P.HPIM ---
History of Present Illness H&P Date: 02/10/23 The patient is a 57-year-old male with a PMH of type II DM with peripheral neuropathy, and squamous cell carcinoma of the head and neck who presents to the emergency room with complaints of nausea and vomiting. The patient reports that he has been experiencing intermittent nausea and vomiting over the past 2 days, of which the worst was this morning with 9-10 episodes of nonbloody nonbilious emesis. Patient reports that he decided to come to the hospital to obtain blood work as ordered by his PCP. While using the restroom however, upon standing up, the patient reportedly lost consciousness. The patient's brother was accompanying him and caught him, with the patient suffering no injuries. The patient does not recall the episode and states that he was told the entire episode lasted less than a minute. The patient denied tongue biting or urinary incontinence. He reports feeling significantly better at the time of interview. Denied experiencing fever, chills, cough, chest pain, shortness of breath, abdominal pain. The patient underwent an extensive evaluation in the emergency room. A CT abdomen and pelvis with contrast revealed uncomplicated colitis versus mesenteric panniculitis. Chest CTA was negative for PE but did reveal bilateral lower lung opacities likely edema versus bilateral multilobar pneumonia. EKG revealed sinus rhythm at [address]/T-wave changes noted and reviewed by me. Laboratory evaluation was remarkable for a lactic acid of 5.9 with WBC cou nt 11.8, BUN 24, creatinine 1.46 (baseline 1.0), and proBNP 192. ED documentation reviewed and case discussed with ED provider. Review of systems: Pertinent positives and negatives as discussed in HPI, a complete review of systems was performed and all other systems are negative. Physical examination: Vital signs reviewed General: non toxic, no distress, appears at stated age, normal weight Derm: no unusual rashes/lesions, warm Head: atraumatic, normocephalic, symmetric Eyes: EOMI, no lid lag, anicteric sclera, pupils equal round reactive to light ENT: Nose and ears atraumatic Neck: No cervical lymphadenopathy, trachea midline, supple Mouth: no lip lesion, mucus membranes moist Cardiovascular: S1S2 reg, no murmur, positive dorsalis pedis pulse bilateral, no edema Lungs: CTA bilateral, no rhonchi, no rales, no accessory muscle use Abdominal: soft, nontender to palpation, no guarding Ext: muscle strength 3 out of 5 in all 4 extremities grossly, no gross muscle atrophy, no contractures, Neuro: CN II-XI grossly intact, no gross focal neuro deficits Psych: Alert, oriented, appropriate affect Assessment: Syncope, likely secondary to dehydration Acute kidney injury Chronic conditions: Type II DM Imaging: A CT abdomen and pelvis with contrast revealed uncomplicated colitis versus mesenteric panniculitis. Chest CTA was negative for PE but did reveal bilateral lower lung opacities likely edema versus bilateral multilobar pneumonia. EKG revealed sinus rhythm at [address]/T-wave changes noted and reviewed by me. Data Review: Laboratory evaluation was remarkable for a lactic acid of 5.9 with WBC count 11.8, BUN 24, creatinine 1.46 (baseline 1.0), and proBNP 192. Plan: Continue with IV fluids normal saline 100 cc/hr Fall precautions, Echocardiogram Check procalcitonin levels C/w Levoquen for pneumonia coverage DVT prophylaxis: Heparin subq The patient is admitted with an anticipated greater than 2 midnight stay for evaluation of syncope CODE STATUS: Full Code Discussed with: Patient Anticipated discharge place: Home Past Medical History Past Medical History: Diabetes Mellitus Additional Past Medical History / Comment(s): Squamous cell carcinoma History of Any Multi-Drug Resistant Organisms: None Reported Additional Past Surgical History / Comment(s): Surgical excision of squamous cell carcinoma with lymphnodectomy and removal of salivary glands 07/26/16. Past Psychological History: No Psychological Hx Reported Smoking Status: Never smoker Past Alcohol Use History: None Reported Past Drug Use History: None Reported - Past Family History Father Family Medical History: Diabetes Mellitus Additional Family Medical History / Comment(s): patient states father had "cardiac issues" Medications and Allergies Home Medications Medication Instructions Recorded Confirmed Type Atorvastatin [Lipitor] 80 mg PO DAILY 05/15/19 05/15/19 History metFORMIN HCL [Glucophage] 500 mg PO BID 05/15/19 05/15/19 History HYDROcodone/APAP 7.5-325MG [Wink 1 tab PO Q4H PRN 3 Days #18 tab 05/17/19 Rx 7.5-325] Allergies Allergy/AdvReac Type Severity Reaction Status Date / Time No Known Allergies Allergy Verified 02/09/23 18:05 Physical Exam Vitals: Vital Signs Temp Pulse Pulse Resp BP BP Pulse Ox 02/10/23 03:55 99.2 F 89 18 108/72 95 02/10/23 02:26 78 18 121/85 97 02/09/23 22:36 98 18 112/53 98 02/09/23 20:50 78 20 71/46 98 02/09/23 18:01 97.2 F L 90 18 97/63 94 L Intake and Output 02/09/23 02/09/23 02/10/23 14:59 22:59 06:59 Other: Weight 83.915 kg Results CBC & Chem 7: 02/09/23 18:41 02/09/23 18:41 Labs: Abnormal Lab Results - Last 24 Hours (Table) 02/09/23 02/09/23 02/09/23 Range/Units 18:41 18:41 18:41 WBC 11.8 H (3.8-10.6) k/uL Neutrophils # (Manual) 8.40 H (1.3-7.7) k/uL D-Dimer (<0.60) mg/L FEU BUN 24 H (9-20) mg/dL Creatinine 1.46 H (0.66-1.25) mg/dL Glucose 296 H (74-99) mg/dL Plasma Lactic Acid Gerard 3.4 H* (0.7-2.0) mmol/L 02/09/23 02/09/23 02/10/23 Range/Units 21:55 21:59 01:15 WBC (3.8-10.6) k/uL Neutrophils # (Manual) (1.3-7.7) k/uL D-Dimer 1.44 H (<0.60) mg/L FEU BUN (9-20) mg/dL Creatinine (0.66-1.25) mg/dL Glucose (74-99) mg/dL Plasma Lactic Acid Gerard 5.9 H* 3.7 H* (0.7-2.0) mmol/L
[2023-02-10] MEDS ORDERED: SODIUM CHLORIDE 0.9% 500 ML 500 ML IV ONE (04:48)
[2023-02-10] MEDS: SODIUM CHLORIDE 0.9% 1,000 ML IV SCH ×3 (05:30→22:05)
[2023-02-10 05:54] LABS: Glucose,Whole Blood 279 mg/dL (70-110)
[2023-02-10] MEDS: HEPARIN SODIUM,PORCINE/PF 5,000 UNIT/0.5 ML SYRINGE SQ SCH ×2 (08:05→16:37)
[2023-02-10 11:32] LABS: Appearance,Urine Clear (Clear); Bilirubin,Urine Negative (Negative); Blood,Urine Negative (Negative); Color,Urine Yellow; Glucose,Urine (UA) 2+ (Negative); Hyaline Casts,Urine 7 /lpf (0-2); Ketones,Urine Trace (Negative); Leukocyte Esterase,Urine Negative (Negative); Mucus,Urine Occasional /hpf; Nitrite,Urine Negative (Negative); PH, Urine 5.5 (5.0-8.0); Protein,Urine 1+ (Negative); RBC,Urine 2 /hpf (0-5); Squamous Epithelial Cell,Urine <1 /hpf (0-4); Urobilinogen,Urine <2.0 mg/dL (<2.0); WBC,Urine 3 /hpf (0-5)
[2023-02-10 11:34] LABS: Glucose,Whole Blood 265 mg/dL (70-110)
[2023-02-10] MEDS ORDERED: DEXTROSE 50% SYRINGE 50 ML IVP PRN ×2 (11:41)
[2023-02-10] MEDS: INSULIN ASPART (NovoLOG) 100 UNIT/ML VIAL SQ SCH ×3 (11:52→22:06)
[2023-02-10] MEDS: MIDODRINE 5 MG TAB PO SCH ×2 (11:52→16:37)
[2023-02-10 12:13] LABS: Specific Gravity,Urine >1.050 (1.001-1.035)
[2023-02-10] MEDS: ONDANSETRON 4 MG/2 ML VIAL IVP PRN ×2 (14:10→22:22)
[2023-02-10 16:47] LABS: Glucose,Whole Blood 145 mg/dL (70-110)
[2023-02-10 20:37] LABS: Glucose,Whole Blood 162 mg/dL (70-110)
[2023-02-10] MEDS: ATORVASTATIN 40 MG TAB PO SCH (22:06)
[2023-02-11] MEDS ORDERED: LEVOFLOXACIN 750MG-D5W PMX 750 MG in DEXTROSE/WATER 1 150ML.BAG IVPB SCH (01:00)
[2023-02-11] MEDS: HEPARIN SODIUM,PORCINE/PF 5,000 UNIT/0.5 ML SYRINGE SQ SCH ×3 (01:30→15:35)
[2023-02-11] MEDS: LEVOFLOXACIN 750MG-D5W PMX 750 MG in DEXTROSE/WATER 1 150ML.BAG IVPB SCH (01:31)
[2023-02-11 06:18] LABS: Glucose,Whole Blood 147 mg/dL (70-110)
[2023-02-11] MEDS: INSULIN ASPART (NovoLOG) 100 UNIT/ML VIAL SQ SCH ×4 (06:36→21:43)
[2023-02-11] MEDS: INSULIN DETEMIR (LEVEMIR) 100 UNIT/ML SYR SQ SCH (07:29)
[2023-02-11] MEDS: SODIUM CHLORIDE 0.9% 1,000 ML IV SCH ×3 (07:30→20:39)
[2023-02-11] MEDS: MIDODRINE 5 MG TAB PO SCH ×3 (07:31→16:42)
--- NOTE | 2023-02-11 09:11 | CA ---
Transthoracic Echo Report Name: Prakash Ma Age: 57 Gender: M : 1965 Exam Date: 02/10/2023 14:31 Exam Location: [facility] Ht (in): 74 Wt (lb): 185 Ordering Physician: Mila Griggs MD Attending/Referring Phys: Food Safety Officer Eliana Garcia RDCS Procedure CPT: Indications: Syncope Cardiac Hx: Technical Quality: Good Contrast 1: Total Dose (mL): Contrast 2: Total Dose (mL): MEASUREMENTS (Male / Female) Normal Values 2D ECHO LV Diastolic Diameter PLAX 4.0 cm 4.2 - 5.9 / 3.9 - 5.3 cm LV Systolic Diameter PLAX 3.3 cm IVS Diastolic Thickness 1.0 cm 0.6 - 1.0 / 0.6 - 0.9 cm LVPW Diastolic Thickness 1.0 cm 0.6 - 1.0 / 0.6 - 0.9 cm LV Relative Wall Thickness 0.5 RV Internal Dim ED PLAX 3.0 cm LA Systolic Diameter LX 3.7 cm 3.0 - 4.0 / 2.7 - 3.8 cm LV Diastolic Volume MOD BP 106.7 cm??? 67 - 155 / 56 - 104 cm??? LV Systolic Volume MOD BP 55.5 cm??? 22 - 58 / 19 - 49 cm??? LV Ejection Fraction MOD BP 47.9 % >= 55 % LV Diastolic Volume MOD 4C 116.4 cm??? LV Systolic Volume MOD 4C 58.0 cm??? LV Ejection Fraction MOD 4C 50.2 % LV Diastolic Length 4C 7.4 cm LV Systolic Length 4C 7.2 cm LV Diastolic Volume MOD 2C 95.9 cm??? LV Systolic Volume MOD 2C 48.3 cm??? LV Ejection Fraction MOD 2C 49.7 % LV Diastolic Length 2C 7.6 cm LV Systolic Length 2C 6.4 cm LA Volume 74.5 cm??? 18 - 58 / 22 - 52 cm??? M-MODE Aortic Root Diameter MM 4.0 cm MV E Point Septal Separation 0.5 cm AV Cusp Separation MM 2.2 cm DOPPLER AV Peak Velocity 121.9 cm/s AV Peak Gradient 5.9 mmHg MV Area PHT 5.3 cm??? Mitral E Point Velocity 130.9 cm/s Mitral A Point Velocity 97.8 cm/s Mitral E to A Ratio 1.3 MV Deceleration Time 143.4 ms TR Peak Velocity 243.6 cm/s TR Peak Gradient 23.7 mmHg Right Ventricular Systolic Press 28.7 mmHg FINDINGS Left Ventricle Left ventricular ejection fraction is estimated at 45-50. Left ventricular cavity size normal. Left ventricular wall thickness normal. There is hypokinesia of the distal anteroapical wall Right Ventricle Normal right ventricular size and function. Right ventricular systolic pressure within normal limits. Right Atrium Normal right atrial size. Left Atrium Moderately increased left atrial volume. Mitral Valve Structurally normal mitral valve. Mild to moderate mitral regurgitation. Aortic Valve Trileaflet aortic valve. No aortic valve stenosis or regurgitation. Tricuspid Valve Structurally normal tricuspid valve. Mild tricuspid regurgitation. Pulmonic Valve Structurally normal pulmonic valve. No pulmonic regurgitation. Pericardium Normal pericardium. No pericardial effusion. Aorta Moderate aortic dilatation at the level of the sinuses of valsalva 40 mm CONCLUSIONS Left ventricle size is normal with ejection fraction of 50% range with the distal anteroapical hypokinesia. There is mild to moderate mitral regurgitation mild tricuspid regurgitation no pulmonary hypertension Previewed by: Dr. Nita Velazquez MD (Electronically Signed) Final Date: 11 Feb 2023 09:11
[2023-02-11 11:59] LABS: Glucose,Whole Blood 132 mg/dL (70-110)
[2023-02-11 12:12] LABS: African American GFR (CKD) >90 (>60 ml/min/1.73 sqM); Anion Gap 8 mmol/L; Blood Urea Nitrogen 23 mg/dL (9-20); Calcium 8.2 mg/dL (8.4-10.2); Carbon Dioxide 26 mmol/L (22-30); Chloride 104 mmol/L (98-107); Glucose 136 mg/dL (74-99); Non-African American GFR(CKD) >90 (>60 ml/min/1.73 sqM); Potassium 4.2 mmol/L (3.5-5.1); Sodium 138 mmol/L (137-145)
[2023-02-11 12:32] LABS: Basophils % (A) 0 %; Eosinophils # (A) 0.2 k/uL (0-0.7); Eosinophils % (A) 2 %; HCT 31.1 % (39.0-53.0); Lymphocytes # (A) 1.2 k/uL (1.0-4.8); Lymphocytes % (A) 10 %; MCH 27.9 pg (25.0-35.0); MCHC 32.7 g/dL (31.0-37.0); MCV 85.4 fL (80.0-100.0); Mean Platelet Volume 8.2; Monocytes # (A) 0.7 k/uL (0-1.0); Monocytes % (A) 6 %; Neutrophils # (A) 10.7 k/uL (1.3-7.7); Neutrophils % (A) 82 %; Platelet Count 197 k/uL (150-450); RBC 3.64 m/uL (4.30-5.90); RDW 13.8 % (11.5-15.5); WBC 13.1 k/uL (3.8-10.6)
[2023-02-11 12:34] LABS: HGB 10.2 gm/dL (13.0-17.5)
--- NOTE | 2023-02-11 14:03 | P.PN ---
Subjective Progress Note Date: 02/11/23 Hospital Course: 57-year-old male with a PMH of type II DM with peripheral neuropathy, and squamous cell carcinoma of the head and neck who presents to the emergency room with complaints of nausea and vomiting, syncope. The patient underwent an extensive evaluation in the emergency room. A CT abdomen and pelvis with contrast revealed uncomplicated colitis versus mesenteric panniculitis. Chest CTA was negative for PE but did reveal bilateral lower lung opacities likely edema versus bilateral multilobar pneumonia. EKG revealed sinus rhythm at [address]/T-wave changes noted and reviewed by me. Laboratory evaluation was remarkable for a lactic acid of 5.9 with WBC count 11.8, BUN 24, creatinine 1.46 (baseline 1.0), and proBNP 192. Echocardiogram showed LVEF 50%, distal anteroapical hypokinesis, mild to moderate mitral regurgitation, mild tricuspid regurgitation. Subjective: Patient seen and examined at bedside. No acute events overnight. Continues to have lightheadedness when getting out of the bed. Pertinent positives and negatives as discussed above, a complete review of systems was performed and all other systems are negative. Vitals Signs Reviewed. General: non toxic, no distress, older than stated age, thin-appearing Derm: no unusual rashes/lesions, warm Head: atraumatic, normocephalic, symmetric Eyes: EOMI, no lid lag, anicteric sclera, pupils equal round reactive to light ENT: Nose and ears atraumatic Neck: No cervical lymphadenopathy, trachea midline, supple Mouth: no lip lesion, mucus membranes moist Cardiovascular: S1S2 reg, no murmur, positive dorsalis pedis pulse bilateral, no edema Lungs: CTA bilateral, no rhonchi, no rales, no accessory muscle use Abdominal: soft, nontender to palpation, no guarding Ext: muscle strength 3 out of 5 in all 4 extremities grossly, no gross muscle atrophy, no contractures, Neuro: CN II-XI grossly intact, no gross focal neuro deficits Psych: Alert, oriented, appropriate affect Data Reviewed Today: Pertinent Labs: WBC 13.1, hemoglobin 10.2, creatinine 0.91, blood sugars range between 136-162, vital signs positive for orthostatic Assessment and Plan: Active: Orthostatic hypotension Syncope Leukocytosis Bilateral multilobar pneumonia Type 2 diabetes -On midodrine 10 mg 3 times a day -Continue fluids at normal saline 1 25 mL an hour -Echocardiogram does not show any severe valvular issues -Morning cortisol added -Continue levofloxacin 750 mg daily -Pro calcitonin ordered, pending -Levemir 20 units, and sliding scale insulin Resolved: Acute kidney injury Chronic: Head and neck cancer DVT ppx: Subcu heparin Code status: Full code Anticipated discharge place: Pending clinical course Anticipated discharge time: Pending clinical course Objective - Vital Signs Vital signs: Vital Signs Temp 99.7 F H 02/11/23 07:22 Pulse 91 02/11/23 10:11 Resp 17 02/11/23 07:22 BP 87/59 02/11/23 10:11 Pulse Ox 95 02/11/23 07:22 FiO2 Intake & Output 02/10/23 02/11/23 02/11/23 18:59 06:59 18:59 Intake Total 1580 Output Total 125 Balance -125 1580 Intake: Intake, IV Titration 1100 Amount Sodium Chloride 0.9% 1, 1100 000 ml @ 125 mls/hr IV . Q8H ANYA Rx#:[id number] Oral 480 Output: Urine 125 Other: # Voids 1 1 # Bowel Movements 1 - Labs CBC & Chem 7: 02/11/23 10:53 02/11/23 10:53 Labs: Abnormal Lab Results - Last 24 Hours (Table) 02/10/23 02/10/23 02/11/23 Range/Units 16:45 20:35 06:07 WBC (3.8-10.6) k/uL RBC (4.30-5.90) m/uL Hgb (13.0-17.5) gm/dL Hct (39.0-53.0) % Neutrophils # (1.3-7.7) k/uL BUN (9-20) mg/dL Glucose (74-99) mg/dL POC Glucose (mg/dL) 145 H 162 H 147 H (70-110) mg/dL Calcium (8.4-10.2) mg/dL 02/11/23 02/11/23 02/11/23 Range/Units 10:53 10:53 11:52 WBC 13.1 H (3.8-10.6) k/uL RBC 3.64 L (4.30-5.90) m/uL Hgb 10.2 L D (13.0-17.5) gm/dL Hct 31.1 L (39.0-53.0) % Neutrophils # 10.7 H (1.3-7.7) k/uL BUN 23 H (9-20) mg/dL Glucose 136 H (74-99) mg/dL POC Glucose (mg/dL) 132 H (70-110) mg/dL Calcium 8.2 L (8.4-10.2) mg/dL
[2023-02-11 16:42] LABS: Glucose,Whole Blood 125 mg/dL (70-110)
[2023-02-11] MEDS: ATORVASTATIN 40 MG TAB PO SCH (20:39)
[2023-02-11 21:26] LABS: Glucose,Whole Blood 130 mg/dL (70-110)
[2023-02-12] MEDS: HEPARIN SODIUM,PORCINE/PF 5,000 UNIT/0.5 ML SYRINGE SQ SCH ×4 (00:08→23:47)
[2023-02-12] MEDS: LEVOFLOXACIN 750MG-D5W PMX 750 MG in DEXTROSE/WATER 1 150ML.BAG IVPB SCH (01:05)
[2023-02-12] MEDS: ONDANSETRON 4 MG/2 ML VIAL IVP PRN (01:06)
[2023-02-12] MEDS: SODIUM CHLORIDE 0.9% 1,000 ML IV SCH ×3 (02:39→20:23)
[2023-02-12 05:22] LABS: Basophils % (A) 0 %; Eosinophils # (A) 0.3 k/uL (0-0.7); Eosinophils % (A) 3 %; HCT 31.1 % (39.0-53.0); HGB 10.1 gm/dL (13.0-17.5); Lymphocytes # (A) 1.4 k/uL (1.0-4.8); Lymphocytes % (A) 12 %; MCH 28.1 pg (25.0-35.0); MCHC 32.5 g/dL (31.0-37.0); MCV 86.5 fL (80.0-100.0); Mean Platelet Volume 8.2; Monocytes # (A) 0.7 k/uL (0-1.0); Monocytes % (A) 5 %; Neutrophils # (A) 9.9 k/uL (1.3-7.7); Neutrophils % (A) 79 %; Platelet Count 189 k/uL (150-450); RBC 3.59 m/uL (4.30-5.90); RDW 13.6 % (11.5-15.5); WBC 12.6 k/uL (3.8-10.6)
[2023-02-12 05:33] LABS: African American GFR (CKD) >90 (>60 ml/min/1.73 sqM); Anion Gap 4 mmol/L; Blood Urea Nitrogen 19 mg/dL (9-20); Calcium 7.9 mg/dL (8.4-10.2); Carbon Dioxide 28 mmol/L (22-30); Chloride 105 mmol/L (98-107); Glucose 104 mg/dL (74-99); Non-African American GFR(CKD) >90 (>60 ml/min/1.73 sqM); Potassium 4.1 mmol/L (3.5-5.1); Sodium 137 mmol/L (137-145)
[2023-02-12] MEDS: INSULIN ASPART (NovoLOG) 100 UNIT/ML VIAL SQ SCH ×4 (05:36→20:22)
[2023-02-12 06:05] LABS: Glucose,Whole Blood 100 mg/dL (70-110)
[2023-02-12] MEDS: MIDODRINE 5 MG TAB PO SCH ×3 (06:17→17:07)
[2023-02-12] MEDS: INSULIN DETEMIR (LEVEMIR) 100 UNIT/ML SYR SQ SCH (06:18)
[2023-02-12 11:46] LABS: Glucose,Whole Blood 131 mg/dL (70-110)
[2023-02-12] MEDS: FLUDROCORTISONE 0.1 MG TAB PO SCH (12:14)
--- NOTE | 2023-02-12 13:06 | P.PN ---
Subjective Progress Note Date: 02/12/23 Hospital Course: 57-year-old male with a PMH of type II DM with peripheral neuropathy, and squamous cell carcinoma of the head and neck who presents to the emergency room with complaints of nausea and vomiting, syncope. The patient underwent an extensive evaluation in the emergency room. A CT abdomen and pelvis with contrast revealed uncomplicated colitis versus mesenteric panniculitis. Chest CTA was negative for PE but did reveal bilateral lower lung opacities likely edema versus bilateral multilobar pneumonia. EKG revealed sinus rhythm at [address]/T-wave changes noted and reviewed by me. Laboratory evaluation was remarkable for a lactic acid of 5.9 with WBC count 11.8, BUN 24, creatinine 1.46 (baseline 1.0), and proBNP 192. Echocardiogram showed LVEF 50%, distal anteroapical hypokinesis, mild to moderate mitral regurgitation, mild tricuspid regurgitation. Patient has orthostatic hypotension, has been on midodrine at home. On fluids. Also started on fludrocortisone. Subjective: Patient seen and examined at bedside. No acute events overnight. Continues to have lightheadedness when getting out of the bed. Continues to have cough and mild shortness of breath. Pertinent positives and negatives as discussed above, a complete review of systems was performed and all other systems are negative. Vitals Signs Reviewed. General: non toxic, no distress, older than stated age, thin-appearing Derm: no unusual rashes/lesions, warm Head: atraumatic, normocephalic, symmetric Eyes: EOMI, no lid lag, anicteric sclera, pupils equal round reactive to light ENT: Nose and ears atraumatic Neck: No cervical lymphadenopathy, trachea midline, supple Mouth: no lip lesion, mucus membranes moist Cardiovascular: S1S2 reg, no murmur, positive dorsalis pedis pulse bilateral, no edema Lungs: CTA bilateral, no rhonchi, no rales, no accessory muscle use Abdominal: soft, nontender to palpation, no guarding Ext: muscle strength 3 out of 5 in all 4 extremities grossly, no gross muscle atrophy, no contractures, Neuro: CN II-XI grossly intact, no gross focal neuro deficits Psych: Alert, oriented, appropriate affect Data Reviewed Today: Pertinent Labs: WBC 12.6, hemoglobin 10.1, creatinine 0.86, pro-calcitonin 5.46, morning cortisol 11, Blood sugars range between 104 to 130 Assessment and Plan: Active: Orthostatic hypotension Syncope Leukocytosis Bilateral multilobar pneumonia Type 2 diabetes -On midodrine 10 mg 3 times a day -Started on fludrocortisone 0.1 mg daily -Continue fluids at normal saline 125 mL an hour -Echocardiogram does not show any severe valvular issues -Repeat orthostatic vitals -Continue levofloxacin 750 mg daily -Levemir 20 units, and sliding scale insulin Resolved: Acute kidney injury Chronic: Head and neck cancer DVT ppx: Subcu heparin Code status: Full code Anticipated discharge place: Pending clinical course Anticipated discharge time: Pending clinical course Objective - Vital Signs Vital signs: Vital Signs Temp 98.7 F 02/12/23 07:10 Pulse 82 02/12/23 07:10 Resp 18 02/12/23 07:10 BP 118/76 02/12/23 07:10 Pulse Ox 95 02/12/23 07:10 FiO2 Intake & Output 02/11/23 02/12/23 02/12/23 18:59 06:59 18:59 Output Total 700 Balance -700 Output: Urine 700 Other: Voiding Method Urinal # Voids 1 - Labs CBC & Chem 7: 02/12/23 05:01 02/12/23 05:01 Labs: Abnormal Lab Results - Last 24 Hours (Table) 02/11/23 02/11/23 02/11/23 Range/Units 10:53 10:53 16:41 WBC (3.8-10.6) k/uL RBC (4.30-5.90) m/uL Hgb (13.0-17.5) gm/dL Hct (39.0-53.0) % Neutrophils # (1.3-7.7) k/uL Glucose (74-99) mg/dL POC Glucose (mg/dL) 125 H (70-110) mg/dL Hemoglobin A1c 9.5 H (0.0-6.0) % Calcium (8.4-10.2) mg/dL Procalcitonin 5.46 H (0.02-0.09) ng/mL 02/11/23 02/12/23 02/12/23 Range/Units 21:25 05:01 05:01 WBC 12.6 H (3.8-10.6) k/uL RBC 3.59 L (4.30-5.90) m/uL Hgb 10.1 L (13.0-17.5) gm/dL Hct 31.1 L (39.0-53.0) % Neutrophils # 9.9 H (1.3-7.7) k/uL Glucose 104 H (74-99) mg/dL POC Glucose (mg/dL) 130 H (70-110) mg/dL Hemoglobin A1c (0.0-6.0) % Calcium 7.9 L (8.4-10.2) mg/dL Procalcitonin (0.02-0.09) ng/mL 02/12/23 Range/Units 11:45 WBC (3.8-10.6) k/uL RBC (4.30-5.90) m/uL Hgb (13.0-17.5) gm/dL Hct (39.0-53.0) % Neutrophils # (1.3-7.7) k/uL Glucose (74-99) mg/dL POC Glucose (mg/dL) 131 H (70-110) mg/dL Hemoglobin A1c (0.0-6.0) % Calcium (8.4-10.2) mg/dL Procalcitonin (0.02-0.09) ng/mL
[2023-02-12 15:38] VITALS: BMI 23.7
[2023-02-12 16:37] LABS: Glucose,Whole Blood 93 mg/dL (70-110)
[2023-02-12] MEDS: ATORVASTATIN 40 MG TAB PO SCH (20:22)
[2023-02-12 20:27] LABS: Glucose,Whole Blood 91 mg/dL (70-110)
[2023-02-13] MEDS: LEVOFLOXACIN 750MG-D5W PMX 750 MG in DEXTROSE/WATER 1 150ML.BAG IVPB SCH (02:02)
[2023-02-13] MEDS: SODIUM CHLORIDE 0.9% 1,000 ML IV SCH (05:22)
[2023-02-13 06:06] LABS: Glucose,Whole Blood 87 mg/dL (70-110)
[2023-02-13] MEDS: INSULIN ASPART (NovoLOG) 100 UNIT/ML VIAL SQ SCH ×4 (06:07→20:43)
[2023-02-13] MEDS: MIDODRINE 5 MG TAB PO SCH ×3 (06:21→17:10)
[2023-02-13] MEDS: INSULIN DETEMIR (LEVEMIR) 100 UNIT/ML SYR SQ SCH (07:01)
[2023-02-13] MEDS: FLUDROCORTISONE 0.1 MG TAB PO SCH (07:50)
[2023-02-13] MEDS: HEPARIN SODIUM,PORCINE/PF 5,000 UNIT/0.5 ML SYRINGE SQ SCH ×2 (07:50→17:10)
--- NOTE | 2023-02-13 09:55 | XR ---
EXAMINATION TYPE: XR chest 1V portable DATE OF EXAM: 02/13/2023 CLINICAL HISTORY: Difficulty breathing progress study. TECHNIQUE: Single AP portable upright view of the chest is obtained. COMPARISON: Chest x-ray and CTA chest from 4 days earlier FINDINGS: There are new increased central opacities bilaterally. Cardiac silhouette size is more pro minent. Osseous structures are intact. IMPRESSION: Worsening moderate bilateral central edema and/or less likely acute infiltrates
[2023-02-13] MEDS ORDERED: FUROSEMIDE 10 MG/ML 2 ML VIAL IV ONE (10:30)
--- NOTE | 2023-02-13 11:10 | P.PN ---
Subjective Progress Note Date: 02/13/23 Hospital Course: 57-year-old male with a PMH of type II DM with peripheral neuropathy, and squam ous cell carcinoma of the head and neck who presents to the emergency room with complaints of nausea and vomiting, syncope. The patient underwent an extensive evaluation in the emergency room. A CT abdomen and pelvis with contrast revealed uncomplicated colitis versus mesenteric panniculitis. Chest CTA was negative for PE but did reveal bilateral lower lung opacities likely edema versus bilateral multilobar pneumonia. EKG revealed sinus rhythm at [address]/T-wave changes noted and reviewed by me. Laboratory evaluation was remarkable for a lactic acid of 5.9 with WBC count 11.8, BUN 24, creatinine 1.46 (baseline 1.0), and proBNP 192. Echocardiogram showed LVEF 50%, distal solange apical hypokinesis, mild to moderate mitral regurgitation, mild tricuspid regurgitation. Patient has orthostatic hypotension, has been on midodrine at home. On fluids. Also started on fludrocortisone. Subjective: Patient seen and examined at bedside. Has been having difficulty breathing, orthopnea Continues to have lightheadedness when getting out of the bed. Pertinent positives and negatives as discussed above, a complete review of systems was performed and all other systems are negative. Vitals Signs Reviewed. General: non toxic, no distress, older than stated age, thin-appearing Derm: no unusual rashes/lesions, warm Head: atraumatic, normocephalic, symmetric Eyes: EOMI, no lid lag, anicteric sclera, pupils equal round reactive to light ENT: Nose and ears atraumatic Neck: No cervical lymphadenopathy, trachea midline, supple Mouth: no lip lesion, mucus membranes moist Cardiovascular: S1S2 reg, no murmur, positive dorsalis pedis pulse bilateral, no edema Lungs: bilateral rales, no accessory muscle use, supplemental oxygen Abdominal: soft, nontender to palpation, no guarding Ext: muscle strength 3 out of 5 in all 4 extremities grossly, no gross muscle atrophy, no contractures, Neuro: CN II-XI grossly intact, no gross focal neuro deficits Psych: Alert, oriented, appropriate affect Data Reviewed Today: Pertinent Labs: Blood sugars range between 87-131 Chest x-ray and apparently interpreted, shows worsening bilateral pulmonary vascular congestion Assessment and Plan: Active: Orthostatic hypotension Syncope Leukocytosis Bilateral multilobar pneumonia Type 2 diabetes Pulmonary vascular congestion -On midodrine 10 mg 3 times a day -on fludrocortisone 0.1 mg daily -Echocardiogram does not show any severe valvular issues -Repeat orthostatic vitals -Continue levofloxacin 750 mg daily -Levemir 20 units, and sliding scale insulin -Fluids discontinued, given 20 mg IV Lasix, BMP tomorrow Resolved: Acute kidney injury Chronic: Head and neck cancer DVT ppx: Subcu heparin Code status: Full code Anticipated discharge place: Pending clinical course Anticipated discharge time: Pending clinical course Objective - Vital Signs Vital signs: Vital Signs Temp 98.3 F 02/13/23 07:11 Pulse 88 02/13/23 07:11 Resp 17 02/13/23 07:11 BP 132/86 02/13/23 07:11 Pulse Ox 94 L 02/13/23 07:11 FiO2 Intake & Output 02/12/23 02/13/23 02/13/23 18:59 06:59 18:59 Output Total 230 Balance -230 Weight 83.915 kg Output: Urine 230 Other: Voiding Method Urinal # Voids 3 - Labs CBC & Chem 7: 02/12/23 05:01 02/12/23 05:01 Labs: Abnormal Lab Results - Last 24 Hours (Table) 02/12/23 Range/Units 11:45 POC Glucose (mg/dL) 131 H (70-110) mg/dL Microbiology - Last 24 Hours (Table) 02/10/23 01:15 Blood Culture - Preliminary Blood 02/10/23 01:00 Blood Culture - Preliminary Blood
[2023-02-13 11:50] LABS: Glucose,Whole Blood 121 mg/dL (70-110)
[2023-02-13 16:53] LABS: Glucose,Whole Blood 185 mg/dL (70-110)
[2023-02-13 20:14] LABS: Glucose,Whole Blood 182 mg/dL (70-110)
[2023-02-13] MEDS: ATORVASTATIN 40 MG TAB PO SCH (20:43)
[2023-02-14] MEDS: HEPARIN SODIUM,PORCINE/PF 5,000 UNIT/0.5 ML SYRINGE SQ SCH ×3 (01:41→17:08)
[2023-02-14] MEDS: LEVOFLOXACIN 750MG-D5W PMX 750 MG in DEXTROSE/WATER 1 150ML.BAG IVPB SCH (01:41)
[2023-02-14] MEDS ORDERED: FUROSEMIDE 10 MG/ML 4 ML VIAL IVP STA (04:45)
[2023-02-14 05:56] LABS: Glucose,Whole Blood 190 mg/dL (70-110)
[2023-02-14] MEDS: INSULIN ASPART (NovoLOG) 100 UNIT/ML VIAL SQ SCH ×4 (06:19→21:30)
[2023-02-14] MEDS: INSULIN DETEMIR (LEVEMIR) 100 UNIT/ML SYR SQ SCH (06:19)
[2023-02-14] MEDS: MIDODRINE 5 MG TAB PO SCH ×3 (08:27→17:08)
[2023-02-14] MEDS: FLUDROCORTISONE 0.1 MG TAB PO SCH (08:27)
[2023-02-14 08:40] LABS: Basophils # (A) 0.05 X 10*3/uL (0.00-0.10); Basophils % (A) 0.7 %; Eosinophils # (A) 0.64 X 10*3/uL (0.04-0.35); Eosinophils % (A) 8.6 %; HCT 32.4 % (39.6-50.0); HGB 10.2 g/dL (13.0-17.0); Immature Grans, Automated 0.8 %; Lymphocytes # (A) 1.38 X 10*3/uL (0.90-5.00); Lymphocytes % (A) 18.4 %; MCH 27.3 pg (27.0-32.0); MCHC 31.5 g/dL (32.0-37.0); MCV 86.6 fL (80.0-97.0); Mean Platelet Volume 10.3 fL (9.5-12.2); Monocytes # (A) 0.72 X 10*3/uL (0.20-1.00); Monocytes % (A) 9.6 %; NRBC Per 100 WBC 0 /100 WBCS (0.0-0.0); Neutrophils # (A) 4.63 X 10*3/uL (1.80-7.70); Neutrophils % (A) 61.9 %; Platelet Count 236 X 10*3/uL (140-440); RBC 3.74 X 10*6/uL (4.40-5.60); WBC 7.48 X 10*3/uL (4.50-10.00)
[2023-02-14 09:13] LABS: African American GFR (CKD) 119.7 (60.0-200.0); Anion Gap 8.9 mmol/L (10.00-18.00); BUN/Creat Ratio 16.29 Ratio (12.00-20.00); Blood Urea Nitrogen 11.4 mg/dL (9.0-27.0); Calcium 8.6 mg/dL (8.7-10.3); Carbon Dioxide 27.1 mmol/L (20.0-27.5); Magnesium 1.6 mg/dL (1.5-2.4); Non-African American GFR(CKD) 103.3 (60.0-200.0)
--- NOTE | 2023-02-14 11:32 | P.CRDCN ---
History of Present Illness History of present illness: HISTORY OF PRESENT ILLNESS: This is a 57-year-old male with a past medical history significant for diabetes, neuropathy, squamous cell cancer status post extensive right facial surgery, possible carotid artery stenosis, and persistent lightheadedness. Patient follow s in the office with Dr. Niño and was last seen in the office in November 2022. We have been asked to see the patient in consultation for orthostatic hypotension and abnormal echocardiogram. Patient examined at the bedside. The patient initially presented to Hospital secondary to nausea and vomiting. The patient also currently had a syncopal episode when he was trying to use the bathroom. The patient is being treated for bilateral pneumonia and is receiving IV antibiotics. The patient also received fluid resuscitation and developed shortness of breath. He received IV Lasix per primary medicine. At the time of examination, the patient denies any chest pain or pressure. He denies any s hortness of breath. The patient was found to have orthostatic hypotension upon admission. The patient is currently on Midodrine 10 mg 3 times a day which she was taking at home. He is also been started on Florinef 0.1 mg daily. He reported that he was not eating or drinking well prior to coming to the hospital. Echocardiogram completed revealing ejection fraction 45-50%, hypokinesis of distal anterior apical wall, [id number] mitral regurgitation, and mild tricuspid regurgitation. * EKG reveals sinus mechanism with no signs of acute ischemia * Chest xray from 02/09/2023 revealed no acute cardio pulmonary process * Laboratory data: W BC 7.48. Hemoglobin 10.2. Platelet count 236. Sodium 130. Potassium 4.0. BUN 11. Creatinine 0.7. Magnesium 1.6. * Current home cardiac medications include Lipitor 40 mg at night REVIEW OF SYSTEMS: At the time of my exam: CONSTITUTIONAL: Denies fever or chills. HEENT: Denies blurred vision, vision changes, or eye pain. Denies hemoptysis CARDIOVASCULAR: Denies chest pain. Denies orthopnea. Denies PND. Denies palpitations RESPIRATORY: Denies shortness of breath. GASTROINTESTINAL: Denies abdominal pain. Denies nausea or vomiting. HEMATOLOGIC: Denies bleeding disorders. GENITOURINARY: Denies any blood in urine. SKIN: Denies pruitis. Denies rash. PHYSICAL EXAM: VITAL SIGNS: Reviewed. GENERAL: Well-developed in no acute distress. HEENT: Head is normocephalic. Pupils are equal, round. Sclerae anicteric. Mucous membranes of the mouth are moist. Neck supple. No JVD or thyromegaly LUNGS: Respirations even and unlabored. Lungs essentially clear to auscultation bilaterally. HEART: Regular rate and rhythm. S1 and S2 heard. ABDOMEN: Soft. Nondistended. Nontender. EXTREMITIES: Normal range of motion. No clubbing or cyanosis. Peripheral pulses intact. No lower extremity edema NEUROLOGIC: Awake and alert. Oriented x 3. ASSESSMENT: Bilateral pneumonia Orthostatic hypotension Acute kidney injury, resolved Respiratory distress, secondary to mild fluid overload, secondary to IV fluid resuscitation, resolved Squamous cell cancer status post extensive right facial surgery Mild cardiomyopathy with hypokinesis of distal anterior apical wall, etiology unknown Diabetes Neuropathy PLAN: Continue with current cardiac medications Agree with Florinef and Midodrine No further IVF. Recommend increased oral intake. No further diuretics needed at this time No further cardiac workup at this time Recommend outpatient follow up with Dr. Niño when acute issues have resolved We'll sign off. Please reconsult if needed. Nurse practitioner note has been reviewed by physician. Signing provider agrees with the documented findings, assessment, and plan of care. Past Medical History Past Medical History: Diabetes Mellitus Additional Past Medical History / Comment(s): Squamous cell carcinoma History of Any Multi-Drug Resistant Organisms: None Reported Additional Past Surgical History / Comment(s): Surgical excision of squamous cell carcinoma with lymphnodectomy and removal of salivary glands 07/26/16. Past Anesthesia/Blood Transfusion Reactions: No Reported Reaction Past Psychological History: No Psychological Hx Reported Smoking Status: Never smoker Past Alcohol Use History: None Reported Past Drug Use History: None Reported - Past Family History Father Family Medical History: Diabetes Mellitus Additional Family Medical History / Comment(s): patient states father had "cardiac issues" Medications and Allergies Home Medications Medication Instructions Recorded Confirmed Type Atorvastatin [Lipitor] 40 mg PO HS 05/15/19 02/10/23 History Insulin Glargine,Hum.rec.anlog 20 units SQ DAILY 02/10/23 02/10/23 History [Insulin Glargine Solostar] Midodrine HCl [ProAmatine] 10 mg PO TID 02/10/23 02/10/23 History metFORMIN HCL ER [Glucophage XR] 1,000 mg PO BID 02/10/23 02/10/23 History Allergies Allergy/AdvReac Type Severity Reaction Status Date / Time No Known Allergies Allergy Verified 02/10/23 09:26 Physical Exam Vitals: Vital Signs Temp Pulse Pulse Resp BP BP BP 02/14/23 07:29 97.7 F 87 19 107/70 02/14/23 02:00 97.9 F 83 14 136/83 02/13/23 19:14 97.4 F L 87 15 132/83 02/13/23 14:03 98.2 F 80 18 104/66 99/67 BP Pulse Ox 02/14/23 07:29 94 L 02/14/23 02:00 98 02/13/23 19:14 95 02/13/23 14:03 134/81 94 L Intake and Output 02/13/23 02/14/23 02/14/23 22:59 06:59 14:59 Other: Voiding Method Urinal # Voids 2 Results 02/14/23 05:07 02/14/23 05:07 CBC 02/14/23 Range/Units 05:07 WBC 7.48 (4.50-10.00) X 10*3/uL RBC 3.74 L (4.40-5.60) X 10*6/uL Hgb 10.2 L (13.0-17.0) g/dL Hct 32.4 L (39.6-50.0) % Plt Count 236 (140-440) X 10*3/uL Comprehensive Metabolic Panel 02/14/23 Range/Units 05:07 Sodium 138 (135-145) mmol/L Potassium 4.0 (3.5-5.5) mmol/L Chloride 102 (96-109) mmol/L Carbon Dioxide 27.1 (20.0-27.5) mmol/L BUN 11.4 (9.0-27.0) mg/dL Creatinine 0.7 (0.6-1.5) mg/dL Glucose 183 H (70-110) mg/dL Calcium 8.6 L (8.7-10.3) mg/dL Current Medications Generic Name Dose Route Start Last Admin Trade Name Freq PRN Reason Stop Dose Admin Aspirin 81 mg 02/15/23 09:00 Aspirin 81 Mg PO DAILY ANYA Atorvastatin Calcium 40 mg 02/10/23 21:00 02/13/23 20:43 Atorvastatin 40 Mg Tab PO 40 mg HS ANYA Administration Dextrose/Water 25 ml 02/10/23 11:41 Dextrose 50% Syringe 50 Ml IVP PER PROTOCOL PRN Hypoglycemia Protocol Dextrose/Water 50 ml 02/10/23 11:41 Dextrose 50% Syringe 50 Ml IVP PER PROTOCOL PRN Hypoglycemia Protocol Fludrocortisone Acetate 0.1 mg 02/12/23 12:00 02/14/23 08:27 Fludrocortisone 0.1 Mg Tab PO 0.1 mg DAILY ANYA Administration Heparin Sodium (Porcine) 5,000 unit 02/10/23 08:00 02/14/23 08:27 Heparin Sodium,Porcine/Pf 5,000 Unit/0.5 Ml Syringe SQ 5,000 unit Q8HR ANYA Administration Levofloxacin 750 mg/ IV 150 mls @ 100 mls/hr 02/10/23 02:00 02/14/23 01:41 Solution IVPB 100 mls/hr Q24H ANYA Administration Protocol Insulin Aspart 0 unit 02/10/23 12:30 02/14/23 06:19 Insulin Aspart (Novolog) 100 Unit/Ml Vial SQ 2 unit ACHS ANYA Administration Protocol Insulin Detemir 20 unit 02/11/23 07:00 02/14/23 06:19 Insulin Detemir (Levemir) 100 Unit/Ml Syr SQ 20 unit DAILY@0700 ANYA Administration Midodrine 10 mg 02/10/23 12:30 02/14/23 08:27 Midodrine 5 Mg Tab PO 10 mg AC-TID ANYA Administration Ondansetron HCl 4 mg 02/10/23 04:47 02/12/23 01:06 Ondansetron 4 Mg/2 Ml Vial IVP 4 mg Q6HR PRN Administration Nausea And Vomiting Intake and Output 02/13/23 02/14/23 02/14/23 22:59 06:59 14:59 Other: Voiding Method Urinal # Voids 2 02/14/23 05:07 02/14/23 05:07
[2023-02-14 12:04] LABS: Glucose,Whole Blood 108 mg/dL (70-110)
--- NOTE | 2023-02-14 12:41 | P.PN ---
Subjective Progress Note Date: 02/14/23 57-year-old male with a PMH of type II DM with peripheral neuropathy, and squamous cell carcinoma of the head and neck who presents to the emergency room with complaints of nausea and vomiting, syncope. The patient underwent an extensive evaluation in the emergency room. A CT abdomen and pelvis with con trast revealed uncomplicated colitis versus mesenteric panniculitis. Chest CTA was negative for PE but did reveal bilateral lower lung opacities likely edema versus bilateral multilobar pneumonia. EKG revealed sinus rhythm at [address]/T-wave changes. Laboratory evaluation was remarkable for a lactic acid of 5.9 with WBC count 11.8, BUN 24, creatinine 1.46 (baseline 1.0), and proBNP 192. Echocardiogram showed LVEF 50%, distal anteroapical hypokinesis, mild to moderate mitral regurgitation, mild tricuspid regurgitation. Patient has orthostatic hypotension, has been on midodrine at home. On fluids. Also started on fludrocortisone. 02/14 Patient was seen and examined. He reports lightheadedness when ambulating this morning. Orthostats are positive today (SBP 108 supine, 79 standing). CBC shows hemoglobin of 10.2. BMP shows glucose 182 and calcium of 8.6. General: nontoxic, no distress, appears at stated age Derm: warm, dry Head: atraumatic, normocephalic, symmetric Eyes: EOMI, no lid lag, anicteric sclera Cardiovascular: S1S2 reg, no murmur Lungs: CTA bilateral, no rhonchi, no rales , no accessory muscle use Ext: no gross muscle atrophy, no edema, no contractures Neuro: no focal neuro deficits Psych: Alert, oriented, appropriate affect Assessment and Plan: Orthostatic hypotension Syncope Bilateral multilobar pneumonia Colitis Type 2 diabetes Pulmonary vascular congestion Hypokinetic wall motion on echocardiogram Resolved: Acute kidney injury, Leukocytosis Chronic: Head and neck cancer Based on my assessment of this patient, this patient meets a severe complexity level of care. Patient has an acute diagnosis of orthostatic hypotension that poses a threat to life or bodily function. Echocardiogram shows EF 45-50% with hypokinetic anteroapical wall. Continue Midodrin 10 mg by mouth 3 times a day. Continue fludrocortisone 0.1 mg by mouth daily. Start thigh-high compression stockings. Obtain orthostats daily. Telemetry monitoring. Cardiology has been consulted. PT and OT has been consulted to work with this patient. Fall precautions. Continue Levaquin 750 mg IV QD for treatment of PNA and colitis. Lasix 20 mg IV given overnight. Lasix 40 mg IV given previously. Patient may be volume overloaded. Repeat BMP tomorrow morning. Attempt to wean oxygen. DVT ppx: Subcu heparin Code status: Full code Anticipated discharge place: Pending clinical course Anticipated discharge time: Pending clinical course I have reviewed the following risk and insurance consultant notes: Cardiology note 02/14, outpatient workup of cardiomyopathy, continue Midodrin and fludrocortisone, repeat orthostatic vitals, 1 dose of Lasix given IV, repeat BMP tomorrow morning. I have reviewed the results of the following tests: CBC shows hemoglobin of 10.2. BMP shows glucose 182 and calcium of 8.6. I have ordered the following tests: BMP ordered for tomorrow morning to evaluate renal function. I have discussed the care of this patient with the following independent histori an: I have independently interpreted the following test below: I have discussed the management of this patient with the following physician: This patient has a high risk of morbidity due to the following reasons: Patient is on IV lasix - monitor daily renal function. Objective - Vital Signs Vital signs: Vital Signs Temp 97.7 F 02/14/23 07:29 Pulse 85 02/14/23 11:13 Resp 19 02/14/23 07:29 BP 108/68 02/14/23 11:13 Pulse Ox 94 L 02/14/23 07:29 FiO2 Intake & Output 02/13/23 02/14/23 02/14/23 18:59 06:59 18:59 Output Total 250 Balance -250 Output: Urine 250 Other: Voiding Method Urinal Urinal # Voids 2 - Labs CBC & Chem 7: 02/14/23 05:07 02/14/23 05:07 Labs: Abnormal Lab Results - Last 24 Hours (Table) 02/13/23 02/13/23 02/14/23 Range/Units 16:51 20:13 05:07 RBC 3.74 L (4.40-5.60) X 10*6/uL Hgb 10.2 L (13.0-17.0) g/dL Hct 32.4 L (39.6-50.0) % MCHC 31.5 L (32.0-37.0) g/dL Immature Gran # 0.06 H (0.00-0.04) X 10*3/uL Eosinophils # 0.64 H (0.04-0.35) X 10*3/uL Anion Gap (10.00-18.00) mmol/L Glucose (70-110) mg/dL POC Glucose (mg/dL) 185 H 182 H (70-110) mg/dL Calcium (8.7-10.3) mg/dL 02/14/23 02/14/23 Range/Units 05:07 05:53 RBC (4.40-5.60) X 10*6/uL Hgb (13.0-17.0) g/dL Hct (39.6-50.0) % MCHC (32.0-37.0) g/dL Immature Gran # (0.00-0.04) X 10*3/uL Eosinophils # (0.04-0.35) X 10*3/uL Anion Gap 8.90 L (10.00-18.00) mmol/L Glucose 183 H (70-110) mg/dL POC Glucose (mg/dL) 190 H (70-110) mg/dL Calcium 8.6 L (8.7-10.3) mg/dL Microbiology - Last 24 Hours (Table) 02/10/23 01:00 Blood Culture - Preliminary Blood 02/10/23 01:15 Blood Culture - Preliminary Blood
[2023-02-14 16:57] LABS: Glucose,Whole Blood 136 mg/dL (70-110)
[2023-02-14] MEDS: ATORVASTATIN 40 MG TAB PO SCH (20:52)
[2023-02-14 21:06] LABS: Glucose,Whole Blood 148 mg/dL (70-110)
[2023-02-15] MEDS: HEPARIN SODIUM,PORCINE/PF 5,000 UNIT/0.5 ML SYRINGE SQ SCH ×4 (00:10→23:07)
[2023-02-15] MEDS: LEVOFLOXACIN 750MG-D5W PMX 750 MG in DEXTROSE/WATER 1 150ML.BAG IVPB SCH (02:07)
[2023-02-15 05:48] LABS: Glucose,Whole Blood 159 mg/dL (70-110)
[2023-02-15] MEDS: MIDODRINE 5 MG TAB PO SCH ×3 (06:32→16:50)
[2023-02-15] MEDS: INSULIN ASPART (NovoLOG) 100 UNIT/ML VIAL SQ SCH ×4 (06:32→22:07)
[2023-02-15] MEDS: INSULIN DETEMIR (LEVEMIR) 100 UNIT/ML SYR SQ SCH (06:32)
[2023-02-15] MEDS: FLUDROCORTISONE 0.1 MG TAB PO SCH (08:26)
[2023-02-15] MEDS: ASPIRIN 81 MG PO SCH (08:26)
[2023-02-15 11:19] LABS: Glucose,Whole Blood 166 mg/dL (70-110)
--- NOTE | 2023-02-15 16:05 | P.PN ---
Subjective Progress Note Date: 02/15/23 57-year-old male with a PMH of type II DM with peripheral neuropathy, and squamous cell carcinoma of the head and neck who presents to the emergency room with complaints of nausea and vomiting, syncope. The patient underwent an extensive evaluation in the emergency room. A CT abdomen and pelvis with con trast revealed uncomplicated colitis versus mesenteric panniculitis. Chest CTA was negative for PE but did reveal bilateral lower lung opacities likely edema versus bilateral multilobar pneumonia. EKG revealed sinus rhythm at [address]/T-wave changes. Laboratory evaluation was remarkable for a lactic acid of 5.9 with WBC count 11.8, BUN 24, creatinine 1.46 (baseline 1.0), and proBNP 192. Echocardiogram showed LVEF 50%, distal anteroapical hypokinesis, mild to moderate mitral regurgitation, mild tricuspid regurgitation. Patient has orthostatic hypotension, has been on midodrine at home. On fluids. Also started on fludrocortisone. 02/14 Patient was seen and examined. He reports lightheadedness when ambulating this morning. Orthostats are positive today (SBP 108 supine, 79 standing). CBC shows hemoglobin of 10.2. BMP shows glucose 182 and calcium of 8.6. 02/15 Patient was seen and examined. He continues to report lightheadedness when standing. Orthostats not done today. No labs done today. Pending insurance auth for SNF. General: nontoxic, no distress, appears at stated age Derm: warm, dry Head: atraumatic, normocephalic, symmetric Eyes: EOMI, no lid lag, anicteric sclera Cardiovascular: S1S2 reg, no murmur Lungs: CTA bilateral, no rhonchi, no rales , no accessory muscle use Ext: no gross muscle atrophy, no edema, no contractures Neuro: no focal neuro deficits Psych: Alert, oriented, appropriate affect Assessment and Plan: Orthostatic hypotension Syncope Bilateral multilobar pneumonia Colitis Type 2 diabetes Pulmonary vascular congestion Hypokinetic wall motion on echocardiogram Resolved: Acute kidney injury, Leukocytosis Chronic: Head and neck cancer Based on my assessment of this patient, this patient meets a moderate complexity level of care. Patient has an acute diagnosis of orthostatic hypotension that poses a threat to life or bodily function. Echocardiogram shows EF 45-50% with hypokinetic anteroapical wall. Continue Midodrin 10 mg by mouth 3 times a day. Continue fludrocortisone 0.1 mg by mouth daily. Continue thigh-high compression stockings. Obtain orthostats daily. Telemetry monitoring. Cardiology has been consulted. PT and OT has been consulted to work with this patient. Fall precautions. Continue Levaquin 750 mg IV QD for treatment of PNA and colitis. Lasix 20 mg IV given overnight. Lasix 40 mg IV given previously. Patient may be volume overloaded. Repeat BMP tomorrow morning. Attempt to wean oxygen. DVT ppx: Subcu heparin Code status: Full code Anticipated discharge place: Pending clinical course Anticipated discharge time: Pending clinical course I have reviewed the following virtualization consultant notes: I have reviewed the results of the following tests: POC glucose 108-166 over the past 24H. I have ordered the following tests: BMP ordered for tomorrow morning to evaluate renal function. I have discussed the care of this patient with the following independent historian: I have independently interpreted the following test below: I have discussed the management of this patient with the following physician: Objective - Vital Signs Vital signs: Vital Signs Temp 97.1 F L 02/15/23 12:53 Pulse 91 02/15/23 12:53 Resp 20 02/15/23 12:53 BP 103/68 02/15/23 12:53 Pulse Ox 92 L 02/15/23 12:53 FiO2 Intake & Output 02/14/23 02/15/23 02/15/23 18:59 06:59 18:59 Intake Total 354 Output Total 500 375 Balance -500 -375 354 Intake: Oral 354 Output: Urine 500 375 Other: Voiding Method Urinal # Voids 1 1 - Labs CBC & Chem 7: 02/14/23 05:07 02/14/23 05:07 Labs: Abnormal Lab Results - Last 24 Hours (Table) 02/14/23 02/14/23 02/14/23 Range/Units 09:54 16:53 21:05 POC Glucose (mg/dL) 136 H 148 H (70-110) mg/dL Procalcitonin 0.94 H (0.02-0.09) ng/mL 02/15/23 02/15/23 Range/Units 05:46 11:18 POC Glucose (mg/dL) 159 H 166 H (70-110) mg/dL Procalcitonin (0.02-0.09) ng/mL Microbiology - Last 24 Hours (Table) 02/10/23 01:15 Blood Culture - Preliminary Blood 02/10/23 01:00 Blood Culture - Preliminary Blood
[2023-02-15 16:22] LABS: Glucose,Whole Blood 217 mg/dL (70-110)
--- NOTE | 2023-02-15 16:28 | CDI ---
Documentation Clarification Form Date: 02/15/2023 4:19:16 PM From: Brenda Cotto RN, CCDS Email: [email or web address] Admit Date: 02/10/2023 1:00:00 AM Patient Name: Prakash Ma Visit Number: [id number] Discharge Date: ATTENTION: The Clinical Documentation Specialists (CDI) and [facility] Coding Staff appreciate your assistance in clarifying documentation. Please respond to the clarification below the line at the bottom and electronically sign. The CDI & [facility] Coding staff will review the response and follow-up if needed. Please note: Queries are made part of the Legal Health Record. If you have any questions, please contact the author of this message via ITS. Dr. Joan Ren The patient had an elevated lactic acid level. Additional clarification regarding this diagnosis is requested. History/Risk Factors: type II DM with peripheral neuropathy, and squamous cell carcinoma of the head and neck who presents to the emergency room with complaints of nausea and vomiting. The patient reports that he has been experiencing intermittent nausea and vomiting over the past 2 days. Clinical Indicators: nausea/vomiting. 02/09 Lactic acid: 3.4-5.9 02/10 Lactic acid: 3.7-1.7 02/09 BP 71/46-112/53 Treatment: 0.9 NS 2L IV bolus then 125/hr. Monitor daily labs Please clarify if there is an additional diagnosis: [ x ] Lactic Acidosis [ ] Metabolic Acidosis [ ] Unable to determine [ ] Other, please specify MTDD
[2023-02-15] MEDS ORDERED: FUROSEMIDE 10 MG/ML 4 ML VIAL IV STA (17:12)
[2023-02-15] MEDS: ATORVASTATIN 40 MG TAB PO SCH (20:45)
[2023-02-15 21:22] LABS: Glucose,Whole Blood 181 mg/dL (70-110)
[2023-02-16] MEDS: LEVOFLOXACIN 750MG-D5W PMX 750 MG in DEXTROSE/WATER 1 150ML.BAG IVPB SCH (01:49)
[2023-02-16 06:38] LABS: Glucose,Whole Blood 215 mg/dL (70-110)
[2023-02-16] MEDS: MIDODRINE 5 MG TAB PO SCH ×3 (06:50→17:39)
[2023-02-16] MEDS: INSULIN DETEMIR (LEVEMIR) 100 UNIT/ML SYR SQ SCH (06:51)
[2023-02-16] MEDS: INSULIN ASPART (NovoLOG) 100 UNIT/ML VIAL SQ SCH ×4 (06:51→21:33)
[2023-02-16 06:57] LABS: African American GFR (CKD) >90 (>60 ml/min/1.73 sqM); Anion Gap 3 mmol/L; Blood Urea Nitrogen 15 mg/dL (9-20); Calcium 8.8 mg/dL (8.4-10.2); Carbon Dioxide 37 mmol/L (22-30); Chloride 96 mmol/L (98-107); Glucose 224 mg/dL (74-99); Non-African American GFR(CKD) >90 (>60 ml/min/1.73 sqM); Potassium 3.7 mmol/L (3.5-5.1); Sodium 136 mmol/L (137-145)
[2023-02-16] MEDS: HEPARIN SODIUM,PORCINE/PF 5,000 UNIT/0.5 ML SYRINGE SQ SCH ×3 (08:52→23:35)
[2023-02-16] MEDS: FLUDROCORTISONE 0.1 MG TAB PO SCH (08:53)
[2023-02-16] MEDS: ASPIRIN 81 MG PO SCH (08:53)
[2023-02-16 11:26] LABS: Glucose,Whole Blood 176 mg/dL (70-110)
[2023-02-16 16:32] LABS: Glucose,Whole Blood 204 mg/dL (70-110)
--- NOTE | 2023-02-16 17:16 | P.PN ---
Subjective Progress Note Date: 02/16/23 57-year-old male with a PMH of type II DM with peripheral neuropathy, and squamous cell carcinoma of the head and neck who presents to the emergency room with complaints of nausea and vomiting, syncope. The patient underwent an extensive evaluation in the emergency room. A CT abdomen and pelvis with con trast revealed uncomplicated colitis versus mesenteric panniculitis. Chest CTA was negative for PE but did reveal bilateral lower lung opacities likely edema versus bilateral multilobar pneumonia. EKG revealed sinus rhythm at [address]/T-wave changes. Laboratory evaluation was remarkable for a lactic acid of 5.9 with WBC count 11.8, BUN 24, creatinine 1.46 (baseline 1.0), and proBNP 192. Echocardiogram showed LVEF 50%, distal anteroapical hypokinesis, mild to moderate mitral regurgitation, mild tricuspid regurgitation. Patient has orthostatic hypotension, has been on midodrine at home. On fluids. Also started on fludrocortisone. 02/14 Patient was seen and examined. He reports lightheadedness when ambulating this morning. Orthostats are positive today (SBP 108 supine, 79 standing). CBC shows hemoglobin of 10.2. BMP shows glucose 182 and calcium of 8.6. 02/15 Patient was seen and examined. He continues to report lightheadedness when standing. Orthostats not done today. No labs done today. Pending insurance auth for SNF. 02/16 Patient was seen and examined. He reports lightheadedness has improved today. Discussed with RN regarding obtaining orthostats. Pending insurance auth for SNF. General: nontoxic, no distress, appears at stated age Derm: warm, dry Head: atraumatic, normocephalic, symmetric Eyes: EOMI, no lid lag, anicteric sclera Cardiovascular: S1S2 reg, no murmur Lungs: CTA bilateral, no rhonchi, no rales , no accessory muscle use Ext: no gross muscle atrophy, no edema, no contractures Neuro: no focal neuro deficits Psych: Alert, oriented, appropriate affect Assessment and Plan: Orthostatic hypotension Syncope Bilateral multilobar pneumonia Colitis Type 2 diabetes Pulmonary vascular congestion Hypokinetic wall motion on echocardiogram Resolved: Acute kidney injury, Leukocytosis Chronic: Head and neck cancer Based on my assessment of this patient, this patient meets a moderate complexity level of care. Patient has an acute diagnosis of orthostatic hypotension that poses a threat to life or bodily function. Echocardiogram shows EF 45-50% with hypokinetic anteroapical wall. Continue Midodrin 10 mg by mouth 3 times a day. Continue fludrocortisone 0.1 mg by mouth daily. Continue thigh-high compression stockings. Obtain orthostats daily. Telemetry monitoring. Cardiology has been consulted. PT and OT has been consulted to work with this patient. Fall precautions. Completed 7 days of Levaquin IV for treatment of PNA and colitis. Lasix 20 mg IV given overnight. Lasix 40 mg IV given previously. Patient may be volume overloaded. Repeat BMP tomorrow morning. Attempt to wean oxygen. DVT ppx: Subcu heparin Code status: Full code Anticipated discharge place: Pending clinical course Anticipated discharge time: Pending clinical course I have reviewed the following case consultant notes: I have reviewed the results of the following tests: POC glucose 176-217 over the past 24H. BMP shows Na 136, Cl 96, bicarb 37, glucose 224. I have ordered the following tests: I have discussed the care of this patient with the following independent historian: I have independently interpreted the following test below: I have discussed the management of this patient with the following physician: Patient is medically stable. Plans for SNF. Insurance auth pending. Objective - Vital Signs Vital signs: Vital Signs Temp 97.5 F L 02/16/23 13:00 Pulse 88 02/16/23 13:00 Resp 20 02/16/23 13:00 BP 117/75 02/16/23 13:00 Pulse Ox 98 02/16/23 13:00 FiO2 Intake & Output 02/15/23 02/16/23 02/16/23 18:59 06:59 18:59 Intake Total 354 236 Output Total 500 1100 300 Balance -146 -1100 -64 Weight 83.915 kg Intake: Oral 354 236 Output: Urine 500 1100 300 - Labs CBC & Chem 7: 02/14/23 05:07 02/16/23 06:19 Labs: Abnormal Lab Results - Last 24 Hours (Table) 02/15/23 02/16/23 02/16/23 Range/Units 21:10 06:19 06:28 Sodium 136 L (137-145) mmol/L Chloride 96 L (98-107) mmol/L Carbon Dioxide 37 H (22-30) mmol/L Glucose 224 H (74-99) mg/dL POC Glucose (mg/dL) 181 H 215 H (70-110) mg/dL 02/16/23 02/16/23 Range/Units 11:25 16:31 Sodium (137-145) mmol/L Chloride (98-107) mmol/L Carbon Dioxide (22-30) mmol/L Glucose (74-99) mg/dL POC Glucose (mg/dL) 176 H 204 H (70-110) mg/dL Microbiology - Last 24 Hours (Table) 02/10/23 01:00 Blood Culture - Final Blood 02/10/23 01:15 Blood Culture - Final Blood
[2023-02-16 21:21] LABS: Glucose,Whole Blood 208 mg/dL (70-110)
[2023-02-16] MEDS: ATORVASTATIN 40 MG TAB PO SCH (21:22)
[2023-02-17 06:22] LABS: Glucose,Whole Blood 102 mg/dL (70-110)
[2023-02-17] MEDS: INSULIN ASPART (NovoLOG) 100 UNIT/ML VIAL SQ SCH ×4 (06:27→22:31)
[2023-02-17] MEDS: MIDODRINE 5 MG TAB PO SCH ×3 (06:39→16:32)
[2023-02-17] MEDS: INSULIN DETEMIR (LEVEMIR) 100 UNIT/ML SYR SQ SCH (08:13)
[2023-02-17] MEDS: HEPARIN SODIUM,PORCINE/PF 5,000 UNIT/0.5 ML SYRINGE SQ SCH ×2 (08:16→16:31)
[2023-02-17] MEDS: ASPIRIN 81 MG PO SCH (08:16)
[2023-02-17] MEDS: FLUDROCORTISONE 0.1 MG TAB PO SCH (09:11)
[2023-02-17 11:28] LABS: Glucose,Whole Blood 182 mg/dL (70-110)
--- NOTE | 2023-02-17 12:12 | P.PN ---
Subjective Progress Note Date: 02/17/23 57-year-old male with a PMH of type II DM with peripheral neuropathy, and squamous cell carcinoma of the head and neck who presents to the emergency room with complaints of nausea and vomiting, syncope. The patient underwent an extensive evaluation in the emergency room. A CT abdomen and pelvis with con trast revealed uncomplicated colitis versus mesenteric panniculitis. Chest CTA was negative for PE but did reveal bilateral lower lung opacities likely edema versus bilateral multilobar pneumonia. EKG revealed sinus rhythm at [address]/T-wave changes. Laboratory evaluation was remarkable for a lactic acid of 5.9 with WBC count 11.8, BUN 24, creatinine 1.46 (baseline 1.0), and proBNP 192. Echocardiogram showed LVEF 50%, distal anteroapical hypokinesis, mild to moderate mitral regurgitation, mild tricuspid regurgitation. Patient has orthostatic hypotension, has been on midodrine at home. On fluids. Also started on fludrocortisone. 02/14 Patient was seen and examined. He reports lightheadedness when ambulating this morning. Orthostats are positive today (SBP 108 supine, 79 standing). CBC shows hemoglobin of 10.2. BMP shows glucose 182 and calcium of 8.6. 02/15 Patient was seen and examined. He continues to report lightheadedness when standing. Orthostats not done today. No labs done today. Pending insurance auth for SNF. 02/16 Patient was seen and examined. He reports lightheadedness has improved today. Discussed with RN regarding obtaining orthostats. Pending insurance auth for SNF. 02/17 Patient was seen and examined. He reports improved lightheadedness. Orthostats were not obtained yesterday. Discussed with RN regarding obtaining orthostats. Pending insurance auth for SNF. General: nontoxic, no distress, appears at stated age Derm: warm, dry Head: atraumatic, normocephalic, symmetric Eyes: EOMI, no lid lag, anicteric sclera Cardiovascular: S1S2 reg, no murmur Lungs: CTA bilateral, no rhonchi, no rales , no accessory muscle use Ext: no gross muscle atrophy, no edema, no contractures Neuro: no focal neuro deficits Psych: Alert, oriented, appropriate affect Assessment and Plan: Orthostatic hypotension Syncope Bilateral multilobar pneumonia Colitis Type 2 diabetes Pulmonary vascular congestion Hypokinetic wall motion on echocardiogram Resolved: Acute kidney injury, Leukocytosis Chronic: Head and neck cancer Based on my assessment of this patient, this patient meets a moderate complexity level of care. Patient has an acute diagnosis of orthostatic hypotension that poses a threat to life or bodily function. Echocardiogram shows EF 45-50% with hypokinetic anteroapical wall. Continue Midodrin 10 mg by mouth 3 times a day. Continue fludrocortisone 0.1 mg by mouth daily. Continue thigh-high compression stockings. Obtain orthostats daily. Telemetry monitoring. Cardiology has been consulted. PT and OT has been consulted to work with this patient. Fall precautions. Completed 7 days of Levaquin IV for treatment of PNA and colitis. CXR ordered this morning to evaluate pulmonary vascular congestion. Discussed with RN about attempting to wean off oxygen. DVT ppx: Subcu heparin Code status: Full code Anticipated discharge place: Pending clinical course Anticipated discharge time: Pending clinical course I have reviewed the following inside sales consultant notes: I have reviewed the results of the following tests: POC glucose 102-208 over the past 24H. I have ordered the following tests: CXR ordered for this morning. Patient is medically stable. Plans for SNF. Insurance auth pending. Objective - Vital Signs Vital signs: Vital Signs Temp 98.9 F 02/17/23 07:30 Pulse 77 02/17/23 07:30 Resp 17 02/17/23 07:30 BP 103/70 02/17/23 07:30 Pulse Ox 94 L 02/17/23 09:34 FiO2 Intake & Output 02/16/23 02/17/23 02/17/23 18:59 06:59 18:59 Intake Total 236 500 Output Total 300 150 Balance -64 350 Weight 83.915 kg Intake: Oral 236 500 Output: Urine 300 150 - Labs CBC & Chem 7: 02/14/23 05:07 02/16/23 06:19 Labs: Abnormal Lab Results - Last 24 Hours (Table) 02/16/23 02/16/23 02/17/23 Range/Units 16:31 21:14 11:27 POC Glucose (mg/dL) 204 H 208 H 182 H (70-110) mg/dL Microbiology - Last 24 Hours (Table) 02/10/23 01:00 Blood Culture - Final Blood 02/10/23 01:15 Blood Culture - Final Blood
[2023-02-17 16:24] LABS: Glucose,Whole Blood 234 mg/dL (70-110)
--- NOTE | 2023-02-17 18:52 | XR ---
EXAMINATION TYPE: XR chest 1V portable DATE OF EXAM: 02/17/2023 Comparison: 02/13/2023 Clinical History: 57-year-old male SOB Findings: Focal opacities along both heart margins. Diffuse interstitial changes persist. Heart likely upper li mits of normal in size. Impression: Diffuse interstitial opacities and prominent bilateral medial lower lung infiltrates persist.
[2023-02-17 21:38] LABS: Glucose,Whole Blood 179 mg/dL (70-110)
[2023-02-17] MEDS: ATORVASTATIN 40 MG TAB PO SCH (22:32)
[2023-02-18] MEDS: HEPARIN SODIUM,PORCINE/PF 5,000 UNIT/0.5 ML SYRINGE SQ SCH ×2 (00:54→08:28)
[2023-02-18 05:49] LABS: Glucose,Whole Blood 180 mg/dL (70-110)
[2023-02-18] MEDS: MIDODRINE 5 MG TAB PO SCH ×2 (07:00→12:10)
[2023-02-18] MEDS: INSULIN ASPART (NovoLOG) 100 UNIT/ML VIAL SQ SCH ×2 (07:01→12:10)
[2023-02-18] MEDS: INSULIN DETEMIR (LEVEMIR) 100 UNIT/ML SYR SQ SCH (07:01)
[2023-02-18] MEDS: FLUDROCORTISONE 0.1 MG TAB PO SCH (08:28)
[2023-02-18] MEDS: ASPIRIN 81 MG PO SCH (08:28)
[2023-02-18 11:14] LABS: Glucose,Whole Blood 222 mg/dL (70-110)
--- NOTE | 2023-02-18 12:47 | P.DS ---
Providers Date of admission: 02/10/23 01:00 Expected date of discharge: 02/18/23 Attending physician: Mila Griggs MD Primary care physician: [facility] Hospital Course: 57-year-old male with a PMH of type II DM with peripheral neuropathy, and squamous cell carcinoma of the head and neck who presents to the emergency room with complaints of nausea and vomiting, syncope. The patient underwent an extensive evaluation in the emergency room. A CT abdomen and pelvis with contrast revealed uncomplicated colitis versus mesenteric panniculitis. Chest CTA was negative for PE but did reveal bilateral lower lung opacities likely edema versus bilateral multilobar pneumonia. EKG revealed sinus rhythm at [address]/T-wave changes. Laboratory evaluation was remarkable for a lactic acid of 5.9 with WBC count 11.8, BUN 24, creatinine 1.46 (baseline 1.0), and proBNP 192. Echocardiogram showed LVEF 50%, distal anteroapical hypokinesis, mild to moderate mitral regurgitation, mild tricuspid regurgitation. Patient has orthostatic hypotension, has been on midodrine at home. On fluids. Also started on fludrocortisone. 02/14 Patient was seen and examined. He reports lightheadedness when ambulating this morning. Orthostats are positive today (SBP 108 supine, 79 standing). CBC shows hemoglobin of 10.2. BMP shows glucose 182 and calcium of 8.6. 02/15 Patient was seen and examined. He continues to report lightheadedness when standing. Orthostats not done today. No labs done today. Pending insurance auth for SNF. 02/16 Patient was seen and examined. He reports lightheadedness has improved today. Discussed with RN regarding obtaining orthostats. Pending insurance auth for SNF. 02/17 Patient was seen and examined. He reports improved lightheadedness. Orthostats were not obtained yesterday. Othostats were negative yesterday. Pending insurance auth for SNF. 02/18 Patient was seen and examined. He complains of some lightheadedness when standing up this morning. Insurance authorization has been obtained for SNF. Saturating 97% on 2L NC. He has completed 7 days of Levaquin IV for treatment of PNA and colitis. Plans to continue Midodrine 10 mg PO TID and Florinef 0.1 mg PO QD. Continue thigh high jeremias hose. Patient advised to sit up for 5 minutes before attempting to stand up. He is advised to follow up with his PCP within 1-2 days of discharge. Follow up with Cardiology within 1 week of discharge for workup of hypokinetic wall motion seen on Echocardiogram. Pertinent studies include CTA chest, CXR, CT AP, Echocardiogram. General: nontoxic, no distress, appears at stated age Derm: warm, dry Head: atraumatic, normocephalic, symmetric Eyes: EOMI, no lid lag, anicteric sclera Cardiovascular: S1S2 reg, no murmur Lungs: CTA bilateral, no rhonchi, no rales , no accessory muscle use Ext: no gross muscle atrophy, no edema, no contractures Neuro: no focal neuro deficits Psych: Alert, oriented, appropriate affect Discharge Diagnosis: Orthostatic hypotension Syncope Bilateral multilobar pneumonia Colitis Type 2 diabetes Pulmonary vascular congestion Hypokinetic wall motion on echocardiogram Resolved: Acute kidney injury, Leukocytosis Chronic: Head and neck cancer This complex discharge took 35 minutes to complete. Patient Condition at Discharge: Stable Plan - Discharge Summary Discharge Rx Participant: No New Discharge Prescriptions: New Fludrocortisone [Florinef] 0.1 mg PO DAILY tab Aspirin 81 mg PO DAILY tab Continue Atorvastatin [Lipitor] 40 mg PO HS Midodrine HCl [ProAmatine] 10 mg PO TID metFORMIN HCL ER [Glucophage XR] 1,000 mg PO BID Insulin Glargine,Hum.rec.anlog [Insulin Glargine Solostar] 20 units SQ DAILY Discharge Medication List Atorvastatin [Lipitor] 40 mg PO HS 05/15/19 [History] Insulin Glargine,Hum.rec.anlog [Insulin Glargine Solostar] 20 units SQ DAILY 02/10/23 [History] Midodrine HCl [ProAmatine] 10 mg PO TID 02/10/23 [History] metFORMIN HCL ER [Glucophage XR] 1,000 mg PO BID 02/10/23 [History] Aspirin 81 mg PO DAILY tab 02/18/23 [Rx] Fludrocortisone [Florinef] 0.1 mg PO DAILY tab 02/18/23 [Rx] Follow up Appointment(s)/Referral(s): Mervin galan Garcia, [NON-STAFF] - As Needed [facility]inic [Primary Care Provider] - 1-2 days (Please call for appointment.) Laly Kate MD [STAFF PHYSICIAN] - 1 Week Discharge Disposition: TRANSFER TO SNF/ECF
[2023-02-18 14:36] VITALS: BP 104/72; PULSE 69; RESP 17; TEMP 97.6
== END 2023-02-18 15:58 | DRG 391 ==
LOC: EC 15:50 → 4SSUR 02-10 01:00
PROVIDERS: ADMIT Internal Medicine; ATTEND Internal Medicine
DX: K52.9 Noninfective gastroenteritis and colitis, unspecified (principal); J18.9 Pneumonia, unspecified organism; N17.9 Acute kidney failure, unspecified; I42.9 Cardiomyopathy, unspecified; E87.20 Acidosis, unspecified; E11.42 Type 2 diabetes mellitus with diabetic polyneuropathy; E86.0 Dehydration; I08.1 Rheumatic disorders of both mitral and tricuspid valves; E87.70 Fluid overload, unspecified; I95.1 Orthostatic hypotension; R06.03 Acute respiratory distress; Z87.891 Personal history of nicotine dependence; Z85.89 Personal history of malignant neoplasm of other organs and systems; Z79.899 Other long term (current) drug therapy; Z79.84 Long term (current) use of oral hypoglycemic drugs; Z79.4 Long term (current) use of insulin; Z28.311 Partially vaccinated for COVID-19
CPT/HCPCS: 36415; 71045; 71046; 71275; 74177; 80048; 80053; 81001; 82150; 82533; 83036; 83605; 83690; 83735; 83880; 84145; 84484; 85025; 85379; 87040; 93005; 93306; 94760; 96361; 96365; 96366; 99285

== ENCOUNTER → 2023-02-09 | Outpatient (CLI) | payer OTHER | END | disposition home or self-care (01) | LOC: LABWHC1 15:21 | PROVIDERS: ATTEND Internal Medicine Endocrinology, Diabetes & Metabolism | DX: E11.65 Type 2 diabetes mellitus with hyperglycemia (principal) ==